=== PATIENT | female | born 1965 | race Caucasian/White ===

== ENCOUNTER 2016-12-28 23:22 | Inpatient (IN) ==
[2016-12-28] MEDS ORDERED: PROPOFOL 1,000 MG/100 ML BOTTLE IV ONE (23:30)
[2016-12-28] MEDS ORDERED: POTASSIUM CHLORIDE INJ 40 MEQ in SODIUM CHLORIDE 0.9% 250 ML IV STA (23:32)
--- NOTE | 2016-12-28 23:42 | Emergency Department Note ---
Chandni Owusu Gwan, am scribing for, and in the presence of, Alex Musa MD 23:39. Lencho Owusu Robert M, MD, personally performed the services described in this documentation, ascribed by Kian Tariq in my presence, and it is both accurate and complete . Arrival - Arrival Stated Complaint: s/p resp arrest Mode of Arrival: Stretcher Source: EMS, Old Records Reviewed, RN Notes Reviewed - History of Present Illness HPI Narrative: Patient is a 51 y/o white female who presents to the ED via [facility] s/p respiratory distress. Patient arrived to ED via stretcher intubated with mechanical ventilator with a GCS 3. Patient has a PMHx of renal failure, IDDM and HTN. [facility] confirmed that pt was at home eating when she began to have respiratory distress. It is then noted that EMS was alerted and after arrival pt went into full cardiac arrest prompting her transfer to [place] ED. Patient then was intubated and began to aspirate prompting a transfer from [place] to [place] ED via [facility]. Onset (ago): hour(s) Consistency: constant Severity: severe Allergies/Adverse Reactions: Allergies Allergy/AdvReac Type Severity Reaction Status Date / Time cefuroxime [From Ceftin] Allergy RASH Verified 09/04/16 08:49 doxercalciferol Allergy ANAPHYLAXIS Verified 09/04/16 08:49 [From Hectorol] Sulfa (Sulfonamide Allergy RASH Verified 09/04/16 08:49 Antibiotics) Home Medications: Home Medications Medication Instructions Recorded Confirmed Type Calcium Acetate [Phoslo] 2,001 mg PO TID W/MEALS 08/18/16 09/06/16 History Escitalopram [Lexapro] 10 mg PO BEDTIME 08/18/16 09/06/16 History Insulin Detemir [Levemir] 60 unit SUBCUT DAILY 08/18/16 09/06/16 History Calcium Acetate 1,334 mg PO BID 09/04/16 09/06/16 History Cinacalcet HCl [Sensipar] 60 mg PO DAILY W/LUNCH 09/04/16 09/06/16 History Metoclopramide HCl 5 mg PO ACHS 09/04/16 09/06/16 History Acetaminophen Tab [Tylenol Tab] 325 mg PO Q4H PRN #0 tablet 09/06/16 09/06/16 Rx Epoetin Beau [Epogen] 8,000 unit SUBCUT MoWeFr@0900 vial 09/06/16 09/06/16 Rx Gabapentin Cap/Tab [Neurontin 300 mg PO TID #0 09/06/16 09/06/16 Rx Cap/Tab] HYDROcodone/ACETAMIN 7.5-325 1 tablet PO Q4H PRN 09/06/16 09/06/16 History [[place] 7.5-325] Insulin Lispro [HumaLOG] See Protocol SUBCUT ACHS 09/06/16 09/06/16 History Magnesium Hydroxide Susp [Milk of 30 ml PO Q6H PRN #0 udcup 09/06/16 09/06/16 Rx Magnesia] Nicotine 21 mg/24 Hr Patch 1 patch TRANSDERM DAILY PRN #0 09/06/16 09/06/16 Rx [Nicoderm CQ 21 mg/24 hr Patch] patch Pantoprazole Tab [Protonix Tab] 40 mg PO DAILY tablet 09/06/16 09/06/16 Rx Potassium Chloride Cap/Tab [K Dur] 20 meq PO DAILY tablet 09/06/16 09/06/16 Rx Insulin Glargine [Lantus] 10 unit SUBCUT BEDTIME injection 09/20/16 Rx traZODone [Desyrel] 100 mg PO BEDTIME PRN #0 tablet 09/20/16 Rx Review of System - Review of System ROS unobtainable: other (pt is on mechanical ventilator) Exam Vital Signs: Vital Signs Temperature 96.5 F L 12/28/16 23:22 Pulse Rate 48 L 12/28/16 23:22 Respiratory Rate 12 12/28/16 23:22 Blood Pressure 152/86 12/28/16 23:22 O2 Sat by Pulse Oximetry 100 12/28/16 23:22 - General Exam limited due to: ALOC (GCS 3) - Head Head exam: Present: atraumatic - Eye Eye exam: Present: PERRL - Respiratory Respiratory exam: Present: other (equal breathe sounds ) - Abdominal Exam Abdominal exam: Present: distention (fluid wave) - Extremities Exam Extremities exam: Present: other (dialysis catheter noted to left upper extremity) Course - Consultations Consultation #1: Dr. Walker, the hospitalist, will admit the patient. Time: 00:02 Results - Labs Lab Results: I have reviewed the patients labs Labs: ABG pH 7.313 (7.35-7.45) L 12/28/16 23:40 ABG pCO2 52.7 MM HG (35-48) H 12/28/16 23:40 ABG pO2 321.0 MM HG (80-95) H 12/28/16 23:40 ABG HCO3 24.4 MMOL/L (20-26) 12/28/16 23:40 ABG Total CO2 24.7 MMOL/L (23-27) 12/28/16 23:40 ABG O2 Saturation 100.0 % (95-100) 12/28/16 23:40 ABG Base Excess -0.1 MMOL/L (-2.5-2.5) 12/28/16 23:40 FiO2 100.00 PERCENT (0-100) 12/28/16 23:40 - Diagnostic Findings Procedure: CT: image reviewed by me (No definite acute intracranial process. There may be slight loss of normal delineation of ramsey-white matter of the frontal lobes.) Critical Care Time Critical Care Time: Yes Total Critical Care Time: 42 Disposition Clinical Impression: Acute respiratory failure, Hypokalemia, End-stage renal disease on peritoneal dialysis, Peripheral neuropathy Case discussed with: patient Disposition: Still a Patient Condition: Critical Time of Disposition: 00:01
[2016-12-28] MEDS ORDERED: SODIUM CHLOR 0.9% KCL 40 MEQ 40 MEQ/1,000 ML BAG IV SCH (23:45)
[2016-12-28 23:48] LABS: Allen Test Positive; Pt O2 Delivery Device Ventilator
[2016-12-28 23:49] LABS: ABG Base Excess -0.1 MMOL/L (-2.5-2.5); ABG HCO3 24.4 MMOL/L (20-26); ABG PCO2 52.7 MM HG (35-48); ABG PH 7.313 (7.35-7.45); ABG TCO2 24.7 MMOL/L (23-27)
[2016-12-29] MEDS ORDERED: MAGNESIUM SULF RIDER 50 ML IV ONE
[2016-12-29] MEDS ORDERED: POTASSIUM CHLORIDE RIDER IV STA (00:01)
[2016-12-29] MEDS ORDERED: POTASSIUM CHLORIDE RIDER IV ONE (00:04)
[2016-12-29] MEDS ORDERED: MAGNESIUM SULF RIDER 2 GM in PREMIX 1 EACH IV STA (00:07)
[2016-12-29] MEDS ORDERED: AMIODARONE 450 MG/9 ML VIAL IV ONE (00:11)
[2016-12-29] MEDS ORDERED: AMIODARONE INJ 450 MG in DEXTROSE 5% 241 ML IV SCH (00:30)
[2016-12-29] MEDS: PROPOFOL 1,000 MG/100 ML BOTTLE IV SCH ×2 (00:48→12:01)
[2016-12-29] MEDS ORDERED: ALBUTEROL/IPRATROPIUM 3 ML NEB RESP TX PRN (00:55)
[2016-12-29] MEDS ORDERED: GLUCAGON 1 MG VIAL IM PRN (00:55)
[2016-12-29] MEDS ORDERED: DEXTROSE 50% 25 GM/50 ML VIAL IV PRN (00:55)
[2016-12-29] MEDS ORDERED: POTASSIUM CHLORIDE 20 MEQ/15 ML UDCUP PER TUBE PRN (00:55)
[2016-12-29] MEDS ORDERED: ACETAMINOPHEN 325 MG TABLET PO PRN (00:55)
[2016-12-29] MEDS ORDERED: HEPARIN DRIP 25,000 UNITS/500 ML PREMIX IV SCH (01:00)
--- NOTE | 2016-12-29 01:01 | Hospitalist History & Physical ---
Assessment and Plan (1) Cardiac arrest with ventricular fibrillation Status: Acute Assessment and plan: Defibrillated in the field and has since had runs of V. tach. Has been given pushes of lidocaine and amiodarone. Uncertain what would have caused the V. fib arrest. There is some suggestion that she may have choked while eating a steak. She has diastolic dysfunction but no systolic dysfunction on echo done earlier this year. She does have end- stage renal disease and a history of TIA so she is certainly at a high risk for thrombosis. She also has a past history of atrial fibrillation. I think it prudent to empirically anticoagulate her with a heparin infusion while the workup is ongoing. Check a d-dimer which in the unlikely chance that it is negative would help rule out thrombosis. Continue to trend troponins. The first troponin was only marginally elevated considering her ESRD and post CODE STATUS. CK-MB was negative. Evaluating for sepsis: check lactate, blood cultures, cultures from peritoneal drain. She has some electrolyte abnormalities that certainly could have precipitated an arrhythmia, perhaps there is a problem with a low K bath that she is using for dialysis or maybe she is having severe diarrhea. CT head showed no acute bleed. Chest x-ray has the appearance of pulmonary edema. ST segment depression in the lateral leads may be reciprocal changes, check right-sided EKG. Continue amiodarone 24 hour load IV infusion. Current Visit: Yes (2) Acute hypoxemic respiratory failure Status: Acute Assessment and plan: Layered records as that she has a past history of COPD, unknown if she has a baseline oxygen requirement. Efforts to wean her from 100% FiO2 required going up on her PEEP so she is showing some difficulty in oxygenating. Duo nebrachael ordered, hold home Spiriva. [place] body weight around 70 kg, tidal volume of 420 cc is eventually a good target. Will decrease from the 500 that she came in on down to 450, can increase rate as needed based on ABGs. Current Visit: Yes (3) Hypomagnesemia Status: Acute Assessment and plan: Appearance of torsades on telemetry, replacing IV Current Visit: Yes (4) COPD (chronic obstructive pulmonary disease) Status: Chronic Assessment and plan: Continue nebs, hold on Spiriva Current Visit: Yes (5) Diabetes 1.5, managed as type 1 Status: Acute Assessment and plan: Very much uncontrolled at this time. Given that she will be n.p.o. and is undergoing a workup for cardiac arrests will have a very lenient glycemic control at this time. Serial fingerstick glucose, medium lispro sliding scale insulin. Check A1c. Current Visit: Yes (6) Atrial fibrillation Status: Chronic Assessment and plan: Rhythm is currently very much irregular. I do not see that she was on any anticoagulation as an outpatient but she will now be started on a heparin infusion given the possibility that her thrombosis may have precipitated her V. fib arrest. Amiodarone given for the ventricular arrhythmia may convert her to sinus rhythm. Current Visit: Yes (7) End-stage renal disease on peritoneal dialysis Status: Acute Assessment and plan: Undergoing peritoneal dialysis, will likely need a dialysis catheter for intermittent hemo-dialysis given her critical and unstable condition. Current Visit: Yes (8) Hypokalemia Status: Acute Assessment and plan: Critically low potassium likely precipitating ventricular arrhythmias, replacing aggressively IV and p.o. Current Visit: Yes History of Present Illness Chief complaint: Cardiac arrest History of present illness: Ms. Muniz is a 51 year old female with history of end-stage renal disease on peritoneal dialysis, type I 0.5 diabetes, A. fib, COPD, MDD, diastolic heart failure (EF 60%,) TIA the presented with a chief complaint of cardiac arrest. Onset sudden. Duration a few hours ago. Relieving factors would be defibrillation in the field. Associated with ventricular arrhythmias. Patient was reportedly eating a steak tonight and somehow became apneic. When paramedics arrived she was not breathing and then intubated in the field. She was in ventricular fibrillation with ROSC after 1 200 J shock. She also received lidocaine and epinephrine. She was taken first to [place]. Initial troponin there was mildly elevated. CK-MB was negative. She was then transferred [facility] due to persistent runs of ventricular tachycardia she was bolused with amiodarone in route. When she arrived in the [place] emergency department she was given potassium for very low serum potassium and magnesium for low magnesium and the appearance of torsades during her ventricular tachycardia. CT head was read as no acute process. She was unable to participate in her own history due to the intubation and her sedation was not going at that time. I have reviewed the workup performed in the emergency department including lab and imaging data. I discussed her case with emergency department providers. Allergies Allergy/AdvReac Type Severity Reaction Status Date / Time cefuroxime [From Ceftin] Allergy RASH Verified 09/04/16 08:49 doxercalciferol Allergy ANAPHYLAXIS Verified 09/04/16 08:49 [From Hectorol] Sulfa (Sulfonamide Allergy RASH Verified 09/04/16 08:49 Antibiotics) Medical,Surgical,& Family Hx - Medical History Cardio: History of: Hypertension, [place] (2005) No history of: Cardiac Dysrhythmia, CHF, Pacemaker, Valvular Heart Disease Psychological: History of: Anxiety Disorders, Behavior Problems, Depression Neurology: History of: Cerebrovascular Accident (PATIENT STATES SHE WAS TOLD SHE HAD STROKE), Migraine, Peripheral Neuropathy No history of: Seizures Endocrine: History of: Diabetes Mellitus (IDDM), Diabetes Mellitus (NIDDM) Respiratory: History of: Bronchitis, Pneumonia (2014) Renal: History of: Dialysis (peritoneal dialysis), Renal Failure Gastrointestinal: History of: GERD, GI Problems (diarrhea/constipation) Musculoskeletal: History of: Back/Neck Problems (generalized neck pain) Other: History of: Anesthesia Reactions, Miscellaneous Medical Problems ( hypertension and CVA are listed on her triage sheet but the patient denies ) - Surgical History Cardiac Surgeries: Patient Denies: Cardiac Catheterization Abdominal Surgeries: Surgical HX of: EGD Reproductive Surgeries: Surgical HX of;: Hysterectomy Patient denies;: Genitourinary Surgery Orthopedic Surgeries: Surgical HX of;: Orthopedic Surgery (NECK SURGERY FOR RUPTURED DISK) - Family History Family History: Reports;: Family Cancer, Family Diabetes (mother), Family Heart Disease (grandfather, mother), Family Hypertension, Family Stroke Denies;: Family Anesthesia Reaction - Social History Smoking Status: Current every day smoker Frequency of Alcohol Use: Unknown Type of Drug Use: Unknown ROS unobtainable: due to endotracheal tube, due to mental status Exam - Constitutional Vitals: Period Temp Pulse Resp BP Sys/Rodriguez Pulse Ox Last 24 Hr 96.5 F-96.5 F 48-48 12-12 152-152/86-86 100 General appearance: over weight, disheveled, other (Middle-aged white female lying on stretcher and intubated, not interactive) Exam: - Eye Eye exam: Present: EOMI. Absent: conjunctival injection, scleral icterus Pupils: Present: ANJU - ENT ENT exam: Present: normal external ear exam, normal oropharynx - Expanded ENT Exam Mouth exam: Present: moist, ET tube - Neck Neck exam: Present: normal inspection. Absent: lymphadenopathy, thyromegaly - Respiratory Respiratory exam: Present: Coarse bronchial breath sounds with good air movement bilaterally. Absent: Wheezes - Cardiovascular Cardiovascular exam: Present: Irregular variable rate. Absent: diastolic murmur , systolic murmur - Expanded Cardiovascular Exam Peripheral pulses: 2+: posterior tibialis (L), posterior tibialis (R) - GI/Abdominal GI/Abdominal exam: Present: normal bowel sounds, soft, PD catheter noted. Absent: distended, hyperactive bowel sounds, hypoactive bowel sounds, organomegaly, tenderness, rebound - Extremities Exam Extremities exam: Present: Trace bilateral lower extremity pitting edema - Neurological Exam Neurological exam: Present: Pupils sluggish bilaterally, does not alert to stimulation or follow commands off sedation - Skin Skin exam: Present: warm, dry. Absent: diaphoretic, rash Results - Impressions EKG with marked irregularity, some sinus conducted beats with a lot of ventricular ectopy. Runs of V. tach noted on telemetry with torsades appearance. ST depression noted in lateral leads. - Diagnostic Findings Procedure: Chest x-ray: report reviewed by me, CT: report reviewed by me
[2016-12-29 01:07] LABS: PT Patient Result 10.9 SECS
[2016-12-29 01:10] LABS: Basophils # 0.1 10*3/uL (0.0-0.2); Basophils % 0.3 % (0.0-0.8); Eosinophils # 0.8 10*3/uL (0.0-0.87); Eosinophils % 2.9 % (0.00-10.9); Hematocrit 28.5 VOL% (35.7-47.0); Hemoglobin 10.1 GM/DL (12.0-16.0); Immature Granulocytes % 1.7 %; Immature Granulocytes Absolute 0.45 #; Lymphocytes # 3.8 10*3/uL (1.4-4.0); Lymphocytes % 14.1 % (21.3-54.2); Mean Corpuscular HGB Conc 35.4 GM/DL (32-36); Mean Corpuscular Hemoglobin 33 PG (27-34); Mean Corpuscular Volume 93.8 FL (87-102); Mean Platelet Volume 10.1 FL (9.6-12.0); Monocytes # 0.9 10*3/uL (0.11-0.8); Monocytes % 3.3 % (1.7-12.7); Neutrophils # 20.7 10*3/uL (1.4-7.4); Neutrophils % 77.7 % (38.7-73.9); Platelet Count 322 T/CUMM (130-400); Red Blood Count 3.04 MC/CUMM (3.8-5.5); Red Cell Distribution Width 14.3 % (9.3-17.3); White Blood Count 26.7 T/CUMM (4-12)
[2016-12-29 01:25] LABS: Alanine Aminotransferase 20 U/L (13-56); Albumin 2.3 G/DL (3.4-5.0); Alkaline Phosphatase 246 U/L (45-117); Aspartate Amino Transferase 40 U/L (0-37); Bilirubin,Total < 0.39 MG/DL (0.2-1.0); Blood Urea Nitrogen 25 MG/DL (7-18); Calcium 8.4 MG/DL (8.5-10.1); Glucose 301 MG/DL (74-106); Magnesium 1.8 MG/DL (1.8-2.4); Osmolality,Calculated 287.8 MOS/KG (273-304); Sodium 137 MMOL/L (136-145); Total Protein 6.1 G/DL (6.4-8.3)
[2016-12-29 01:37] LABS: Potassium 2.2 MMOL/L (3.5-5.1)
[2016-12-29 02:06] LABS: Platelet Estimate Normal
[2016-12-29 03:32] LABS: ABG Base Excess -0.3 MMOL/L (-2.5-2.5); ABG HCO3 25.3 MMOL/L (20-26); ABG Oxygen Saturation 97.7 % (95-100); ABG PCO2 45.7 MM HG (35-48); ABG PH 7.361 (7.35-7.45); ABG PO2 118.3 MM HG (80-95); ABG TCO2 26.7 MMOL/L (23-27); Allen Test Positive; Pt O2 Delivery Device Ventilator
--- NOTE | 2016-12-29 03:46 | EKG Report ---
Stationary ECG Study [facility] Test Date: 12/29/2016 3:45:02 AM Pat Name: ROSEMARY PADILLA Department: Room: 128 Gender: F Access Rep: MARVIN : 1965 Requested by: Vicenta Knight Order Number: [id number] Reading MD: ANGELO NAIR Intervals [place] Rate: 73 P: 999 RI: 0 QRS: -29 QRSD: 99 T: 59 QT: 423 QTc: 450 Interpretive Statements SINUS RHYTHM WITH FREQUENT PREMATURE VENTRICULAR COMPLEXES THAT APPEAR TO BE MULTI FOCAL. Electronically Signed On 12-30-16 11:35:47 CDT by ANGELO NAIR [email or web address]
[2016-12-29] MEDS ORDERED: MAGNESIUM SULF RIDER 4 GM in PREMIX 1 EACH IV PRN (03:51)
[2016-12-29] MEDS ORDERED: MAGNESIUM SULF RIDER 2 GM in PREMIX 1 EACH IV PRN (03:51)
[2016-12-29] MEDS: fentaNYL INJ 1,250 MCG in SODIUM CHLORIDE 0.9% 225 ML IV SCH (04:18)
[2016-12-29] MEDS: INSULIN LISPRO 100 UNIT/ML SUBCUT SCH ×3 (07:15→18:12)
--- NOTE | 2016-12-29 07:21 | Hospitalist Progress Note ---
Assessment and Plan - Time spent with patient Time spent with patient: Greater than 30 minutes (1) Cardiac arrest with ventricular fibrillation Status: Acute Assessment and plan: Patient had out of hospital cardiac arrest with reported ventricular fibrillation status post field defibrillation 1 with subsequent runs of ventricular tachycardia. Patient has been heparinized and placed on IV amiodarone. She is intubated sedated and requiring ventilatory support. She is receiving electrolyte replacement. Cardiology has been consulted. Will discuss with him and consider initiation of hypothermia protocol. Current Visit: Yes (2) Acute respiratory failure Status: Acute Assessment and plan: Patient is status post cardiac arrest and is now intubated and sedated on a ventilator. Have consulted pulmonary to assist. Current Visit: Yes (3) Diabetes 1.5, managed as type 1 Status: Acute Assessment and plan: Patient will be placed on Lantus along with Accu-Cheks and sliding scale insulin. Will follow and make adjustments as needed. Current Visit: Yes (4) Hypokalemia Status: Acute Assessment and plan: Receiving potassium replacement per protocol. Current Visit: Yes (5) Hypomagnesemia Status: Acute Assessment and plan: Receiving magnesium replacement per protocol. Current Visit: Yes (6) End-stage renal disease on peritoneal dialysis Status: Acute Assessment and plan: Patient is on peritoneal dialysis. Have consulted nephrology to assist. Current Visit: Yes (7) COPD (chronic obstructive pulmonary disease) Status: Chronic Assessment and plan: Reported history of COPD. Continue ventilatory support nebulizer therapy. Consulted pulmonary to assist. Current Visit: Yes (8) Atrial fibrillation Status: Chronic Assessment and plan: Patient has history of atrial fibrillation. Currently she is on heparin infusion as well as amiodarone. No noted outpatient anticoagulation. Cardiology has been consulted. Current Visit: Yes Hospitalist: Subjective Interval history: Chart reviewed, patient examined. Patient remains intubated, sedated. Exam - Constitutional Vitals: Period Temp Pulse Resp BP Sys/Rodriguez Pulse Ox Last 24 Hr 97.6 F-97.9 F 65-106 14-28 138-178/66-91 89-100 General appearance: no acute distress - Head Head exam: Present: normocephalic, atraumatic - Eye Eye exam: Absent: scleral icterus Pupils: Present: dilated - ENT ENT exam: Present: other (ET tube in place) - Neck Neck exam: Present: normal inspection - Respiratory Respiratory exam: Present: clear to auscultation bilaterally. Absent: rales, rhonchi, wheezes - Cardiovascular Cardiovascular exam: Present: regular rate and rhythm. Absent: systolic murmur - GI/Abdominal GI/Abdominal exam: Present: normal bowel sounds, soft. Absent: mass, tenderness - Extremities Exam Extremities exam: Absent: calf tenderness, edema - Neurological Exam Neurological exam: Present: other (Intubated, sedated, postures to noxious stimuli) - Skin Skin exam: Present: warm. Absent: petechiae, rash Results - Labs CBC & BMP: 12/29/16 00:00 12/29/16 00:00 Lab Results: I have reviewed the past 24 hour labs - EKG EKG shows: sinus rhythm - Diagnostic Findings Procedure: Chest x-ray: report reviewed by me, CT: report reviewed by me
--- NOTE | 2016-12-29 08:03 | XRay Report ---
XR chest 1V portable Indication: Chest pain. Shortness of breath. Comparison: Chest x-ray 12/28/2016; 2325 hours Technique: Portable AP chest was performed. Findings: Endotracheal tube is stable in position. There is been interval partial clearing of the lung parenchyma and perihilar regions bilaterally. Chest is otherwise stable. Impression: 1. Improved appearance of the lung parenchyma suggests improving pulmonary edema. 12/29/2016 8:00 AM PROCEDURE INTERPRETED AT [facility] DEPARTMENT OF RADIOLOGY Final Report Signed by: Dr. Marc Musa
--- NOTE | 2016-12-29 08:04 | CT Report ---
CT head/brain wo con Indication: Respiratory arrest status post resuscitation. Comparison: CT head 08/18/2016. Technique: CT of the brain was performed without administration of intravenous contrast. The CT examination was performed using one or more of the following dose reduction techniques: Automatic exposure control, adjustment of the mA and kV according to patient size, use of acute or iterative reconstruction techniques. Findings: Guerrero-white matter junction remains fairly distinct. There is no evidence of cerebral edema. No acute hemorrhage is demonstrated. No midline shift is present. The ventricles appear within normal limits. The basal cisterns are patent. No significant abnormality is demonstrated to involve the posterior fossa or cerebellum. Orbits and globes demonstrate no evidence of significant pathology. The paranasal sinuses are clear. No significant abnormality is demonstrated to involve the mastoid air cells. The calvarium and overlying soft tissues demonstrate no evidence of acute pathology. Impression: 1. No CT evidence of acute intracranial pathology. 12/29/2016 8:01 AM PROCEDURE INTERPRETED AT [facility] DEPARTMENT OF RADIOLOGY Final Report Signed by: Dr. Marc Musa
[2016-12-29] MEDS ORDERED: LIDOCAINE 1% 20 ML VIAL MISC INJ ONE (08:24)
--- NOTE | 2016-12-29 08:27 | EKG Report ---
Please refer to the EKG image. Final interpretation is pending.
--- NOTE | 2016-12-29 08:30 | EKG Report ---
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
--- NOTE | 2016-12-29 08:34 | Cardiology Consult Note ---
Assessment and Plan (1) Acute respiratory failure Status: Acute Current Visit: Yes (2) Cardiac arrest with ventricular fibrillation Status: Acute Assessment and plan: Patient was noted to have a potassium of 2.2 and is getting replaced. As far as etiology of her V. fib this certainly could have contributed. We will repeat an echo to evaluate LV function currently. Current Visit: Yes (3) Hypomagnesemia Status: Acute Current Visit: Yes (4) Atrial fibrillation Status: Chronic Current Visit: Yes (5) ESRD (end stage renal disease) Status: Chronic Current Visit: No (6) Hypokalemia Status: Chronic Current Visit: No History of Present Illness - Data of Consult Patient: new to practice - Consult Narrative Reason for consult: Cardiopulmonary arrest History of present illness: Ms. Muniz is a 51 year old female who is an end-stage renal dialysis patient who was seen after collapsing while eating. She was defibrillated in the field and presented to [place] emergency room and was transferred to [facility] for continued care. She has a past history of atrial fibrillation she has a history of TIA she has a history of heart failure with preserved ejection fraction. Apparently she was intubated at [facility] and there was some question as to whether she aspirated during that intubation. She has been sedated on the ventilator since admission here with questionable seizure activity. She is for evaluation related to any change in her underlying cardiac status which would explain her recent rhythm issues. CC: Santo Lux - Home Medications and Allergies Home Medications: Home Medications Medication Instructions Recorded Confirmed Type Calcium Acetate [Phoslo] 2,001 mg PO TID W/MEALS 08/18/16 09/06/16 History Escitalopram [Lexapro] 10 mg PO BEDTIME 08/18/16 09/06/16 History Insulin Detemir [Levemir] 60 unit SUBCUT DAILY 08/18/16 09/06/16 History Calcium Acetate 1,334 mg PO BID 09/04/16 09/06/16 History Cinacalcet HCl [Sensipar] 60 mg PO DAILY W/LUNCH 09/04/16 09/06/16 History Metoclopramide HCl 5 mg PO ACHS 09/04/16 09/06/16 History Acetaminophen Tab [Tylenol Tab] 325 mg PO Q4H PRN #0 tablet 09/06/16 09/06/16 Rx Epoetin Beau [Epogen] 8,000 unit SUBCUT MoWeFr@0900 vial 09/06/16 09/06/16 Rx Gabapentin Cap/Tab [Neurontin 300 mg PO TID #0 09/06/16 09/06/16 Rx Cap/Tab] HYDROcodone/ACETAMIN 7.5-325 1 tablet PO Q4H PRN 09/06/16 09/06/16 History [[place] 7.5-325] Insulin Lispro [HumaLOG] See Protocol SUBCUT ACHS 09/06/16 09/06/16 History Magnesium Hydroxide Susp [Milk of 30 ml PO Q6H PRN #0 udcup 09/06/16 09/06/16 Rx Magnesia] Nicotine 21 mg/24 Hr Patch 1 patch TRANSDERM DAILY PRN #0 09/06/16 09/06/16 Rx [Nicoderm CQ 21 mg/24 hr Patch] patch Pantoprazole Tab [Protonix Tab] 40 mg PO DAILY tablet 09/06/16 09/06/16 Rx Potassium Chloride Cap/Tab [K Dur] 20 meq PO DAILY tablet 09/06/16 09/06/16 Rx Insulin Glargine [Lantus] 10 unit SUBCUT BEDTIME injection 09/20/16 Rx traZODone [Desyrel] 100 mg PO BEDTIME PRN #0 tablet 09/20/16 Rx Allergies/Adverse Reactions: Allergies Allergy/AdvReac Type Severity Reaction Status Date / Time cefuroxime [From Ceftin] Allergy RASH Verified 09/04/16 08:49 doxercalciferol Allergy ANAPHYLAXIS Verified 09/04/16 08:49 [From Hectorol] Sulfa (Sulfonamide Allergy RASH Verified 09/04/16 08:49 Antibiotics) ROS unobtainable: due to endotracheal tube, due to mental status Medical,Surgical,& Family Hx - Medical History Cardio: History of: Hypertension, [place] (2005) No history of: Cardiac Dysrhythmia, CHF, Pacemaker, Valvular Heart Disease Psychological: History of: Anxiety Disorders, Behavior Problems, Depression Neurology: History of: Cerebrovascular Accident (PATIENT STATES SHE WAS TOLD SHE HAD STROKE), Migraine, Peripheral Neuropathy No history of: Seizures Endocrine: History of: Diabetes Mellitus (IDDM), Diabetes Mellitus (NIDDM) Respiratory: History of: Bronchitis, Pneumonia (2014) Renal: History of: Dialysis (peritoneal dialysis), Renal Failure Gastrointestinal: History of: GERD, GI Problems (diarrhea/constipation) Musculoskeletal: History of: Back/Neck Problems (generalized neck pain) Other: History of: Anesthesia Reactions, Miscellaneous Medical Problems ( hypertension and CVA are listed on her triage sheet but the patient denies ) - Surgical History Cardiac Surgeries: Patient Denies: Cardiac Catheterization Abdominal Surgeries: Surgical HX of: EGD Reproductive Surgeries: Surgical HX of;: Hysterectomy Patient denies;: Genitourinary Surgery Orthopedic Surgeries: Surgical HX of;: Orthopedic Surgery (NECK SURGERY FOR RUPTURED DISK) - Family History Family History: Reports;: Family Cancer, Family Diabetes (mother), Family Heart Disease (grandfather, mother), Family Hypertension, Family Stroke Denies;: Family Anesthesia Reaction - Social History Smoking Status: Current every day smoker Frequency of Alcohol Use: Unknown Type of Drug Use: Unknown Physical Examination Vital Signs Temp Pulse Resp BP Pulse Ox 96.5 F L 48 L 12 152/86 100 12/28/16 23:22 12/28/16 23:22 12/28/16 23:22 12/28/16 23:22 12/28/16 23:22 Other: General: Patient is unresponsive on the ventilator. Does not respond to deep pain. HEENT: no new lesions, sclerae are clear, mouth and pharynx benign Neck: supple, trachea midline, no JVD noted Lungs: Coarse rhonchi to both lung villareal. No wheeze or rales are noted. Equal breath sounds are noted. CV: RRR no murmur rub or gallop is noted. Abd: soft and nontender, BSNA, no masses. Ext: no cyanosis, clubbing or edema Neuro: Patient is sedated on the ventilator. She is having questionable seizure activity. Result/EKG - Labs CBC & BMP: 12/29/16 00:00 12/29/16 00:00 Labs: Laboratory Results - last 24 hr 12/29/16 12/29/16 12/29/16 01:50 01:50 03:20 Circ Anticoag PTT ABG pH 7.361 ABG pCO2 45.7 ABG pO2 118.3 H ABG HCO3 25.3 ABG Total CO2 26.7 ABG O2 Saturation 97.7 ABG Base Excess -0.3 FiO2 80.00 POC Glucose Lactic Acid Fluid Tot Cell Count 3 Fluid Neutrophils 33 Fluid Lymphocytes 67 Fluid Glucose 439 Dialysate WBC 19 Dialysate RBC < 1 12/29/16 12/29/16 12/29/16 06:51 06:51 07:06 Circ Anticoag PTT 39.9 D ABG pH ABG pCO2 ABG pO2 ABG HCO3 ABG Total CO2 ABG O2 Saturation ABG Base Excess FiO2 POC Glucose 442 H Lactic Acid 9.2 H Fluid Tot Cell Count Fluid Neutrophils Fluid Lymphocytes Fluid Glucose Dialysate WBC Dialysate RBC - EKG EKG results: interpreted by me (Atrial fibrillation nonspecific ST-T abnormalities)
--- NOTE | 2016-12-29 08:35 | Pulmonology Consult Note ---
History of Present Illness Chief complaint: Status post cardiac arrest History of present illness: Ms. Muniz is a 51 year old female who apparently was eating a steak and suddenly became unconscious. It is unclear whether she choked on the food or had a cardiac event. She had ventricular fibrillation was defibrillated intubated and brought here. The present time she is unresponsive unable to give us any other history. She is an end-stage renal disease patient with chronic peritoneal dialysis. Unable to get an assessment plan section so will list impressions here: 1. Status post cardiac arrest with ventricular fibrillation. I suspect that she choked on food and aspirated. Certainly could have been a cardiac event. Troponins are not markedly elevated at this point. 2. Acute hypoxemic respiratory failure. Will continue mechanical ventilation and adjust ventilator as indicated. She is on 80% at present I think we can cut her back to 60%. Questionable history of COPD. 3. End-stage renal disease with peritoneal dialysis. No signs of infection related. Continue with dialysis as required. 4. Diabetes mellitus. Increased risks of sepsis. 5. Suspect aspiration with aspiration pneumonia. We will plan bronchoscopy and clean her out. Will add Cleocin and Levaquin. Home Medications Medication Instructions Recorded Confirmed Type Calcium Acetate [Phoslo] 2,001 mg PO TID W/MEALS 08/18/16 09/06/16 History Escitalopram [Lexapro] 10 mg PO BEDTIME 08/18/16 09/06/16 History Insulin Detemir [Levemir] 60 unit SUBCUT DAILY 08/18/16 09/06/16 History Calcium Acetate 1,334 mg PO BID 09/04/16 09/06/16 History Cinacalcet HCl [Sensipar] 60 mg PO DAILY W/LUNCH 09/04/16 09/06/16 History Metoclopramide HCl 5 mg PO ACHS 09/04/16 09/06/16 History Acetaminophen Tab [Tylenol Tab] 325 mg PO Q4H PRN #0 tablet 09/06/16 09/06/16 Rx Epoetin Beau [Epogen] 8,000 unit SUBCUT MoWeFr@0900 vial 09/06/16 09/06/16 Rx Gabapentin Cap/Tab [Neurontin 300 mg PO TID #0 09/06/16 09/06/16 Rx Cap/Tab] HYDROcodone/ACETAMIN 7.5-325 1 tablet PO Q4H PRN 09/06/16 09/06/16 History [[place] 7.5-325] Insulin Lispro [HumaLOG] See Protocol SUBCUT ACHS 09/06/16 09/06/16 History Magnesium Hydroxide Susp [Milk of 30 ml PO Q6H PRN #0 udcup 09/06/16 09/06/16 Rx Magnesia] Nicotine 21 mg/24 Hr Patch 1 patch TRANSDERM DAILY PRN #0 09/06/16 09/06/16 Rx [Nicoderm CQ 21 mg/24 hr Patch] patch Pantoprazole Tab [Protonix Tab] 40 mg PO DAILY tablet 09/06/16 09/06/16 Rx Potassium Chloride Cap/Tab [K Dur] 20 meq PO DAILY tablet 09/06/16 09/06/16 Rx Insulin Glargine [Lantus] 10 unit SUBCUT BEDTIME injection 09/20/16 Rx traZODone [Desyrel] 100 mg PO BEDTIME PRN #0 tablet 09/20/16 Rx Allergies Allergy/AdvReac Type Severity Reaction Status Date / Time cefuroxime [From Ceftin] Allergy RASH Verified 09/04/16 08:49 doxercalciferol Allergy ANAPHYLAXIS Verified 09/04/16 08:49 [From Hectorol] Sulfa (Sulfonamide Allergy RASH Verified 09/04/16 08:49 Antibiotics) ROS unobtainable: due to endotracheal tube, due to mental status Exam (Pulmonay) H&P - Constitutional Vitals: Period Temp Pulse Resp BP Sys/Rodriguez Pulse Ox Last 24 Hr 97.6 F-97.9 F 65-106 1-28 138-178/66-91 89-100 Exam: Patient is unresponsive. Pupils are midpoint and sluggish. Orotracheal tube in place. Neck supple. Chest reveals some rhonchi bilaterally. Heart normal rate rhythm no murmurs. Abdomen soft no masses. Extremities no clubbing cyanosis trace of edema. Patient has peritoneal catheter in place Medical,Surgical,& Family Hx - Medical History Cardio: History of: Hypertension, [place] (2005) No history of: Cardiac Dysrhythmia, CHF, Pacemaker, Valvular Heart Disease Psychological: History of: Anxiety Disorders, Behavior Problems, Depression Neurology: History of: Cerebrovascular Accident (PATIENT STATES SHE WAS TOLD SHE HAD STROKE), Migraine, Peripheral Neuropathy No history of: Seizures Endocrine: History of: Diabetes Mellitus (IDDM), Diabetes Mellitus (NIDDM) Respiratory: History of: Bronchitis, Pneumonia (2015) Renal: History of: Dialysis (peritoneal dialysis), Renal Failure Gastrointestinal: History of: GERD, GI Problems (diarrhea/constipation) Musculoskeletal: History of: Back/Neck Problems (generalized neck pain) Other: History of: Anesthesia Reactions, Miscellaneous Medical Problems ( hypertension and CVA are listed on her triage sheet but the patient denies ) - Surgical History Cardiac Surgeries: Patient Denies: Cardiac Catheterization Abdominal Surgeries: Surgical HX of: EGD Reproductive Surgeries: Surgical HX of;: Hysterectomy Patient denies;: Genitourinary Surgery Orthopedic Surgeries: Surgical HX of;: Orthopedic Surgery (NECK SURGERY FOR RUPTURED DISK) - Family History Family History: Reports;: Family Cancer, Family Diabetes (mother), Family Heart Disease (grandfather, mother), Family Hypertension, Family Stroke Denies;: Family Anesthesia Reaction - Social History Smoking Status: Current every day smoker Frequency of Alcohol Use: Unknown Type of Drug Use: Unknown Results - Labs CBC & BMP: 12/29/16 00:00 12/29/16 00:00 Lab Results: I have reviewed the past 24 hour labs - Diagnostic Findings Procedure: Chest x-ray: image reviewed by me (ET tube in good position. Right lower lobe infiltrate consistent with pneumonia, suspicious for aspiration.)
[2016-12-29 08:53] LABS: PT Patient Result 11.1 SECS
[2016-12-29 09:02] LABS: Magnesium 2.6 MG/DL (1.8-2.4); Partial Thromboplastin Time 42.2 SECS (0-40)
--- NOTE | 2016-12-29 09:02 | Ultrasound Report ---
US venous doppler LE BI Indication: Atrial fibrillation. Cardiac arrest. Leg swelling. Comparison: None. Technique: Using a transcutaneous probe, grayscale, spectral Doppler, and color Doppler images of the bilateral lower extremity venous structures were captured and stored. Grayscale images prior to and following compression were obtained. Interrogated venous structures include the bilateral common femoral vein, superficial femoral vein (proximal, mid, and distal), and popliteal vein. Findings: There is no evidence of thrombus within the interrogated venous structures. the interrogated venous segments demonstrate presence of both color flow and spectral flow. The left popliteal fossa contains a hypoechoic structure measuring 4.0 x 2.2 x 4.2 cm compatible with Chase's cyst. Impression: 1. No evidence of venous thrombosis. 2. 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 12/29/2016 8:59 AM PROCEDURE INTERPRETED AT [facility] DEPARTMENT OF RADIOLOGY Final Report Signed by: Dr. Marc Musa
--- NOTE | 2016-12-29 09:10 | Operative Note ---
Date of procedure: 12/29/16 (Fiberoptic bronchoscopy with removal of retained secretion) Pre-op diagnosis: Aspiration pneumonia right lung Post-op diagnosis: same Procedure: After an appropriate timeout to be sure we were dealing with Betty Muniz, the ventilator was turned to 100% oxygen. The fiberoptic bronchoscope was introduced via the side arm of the endotracheal tube. I first used a pediatric scope because her endotracheal tube was a 7.0 size. We visualize the airways and found a good bit of secretions in the right lung. They were fairly thick. I was unable to suction him out with the pediatric scope so I used a medium- sized adult scope. We then were able to irrigate and remove retained secretions and plugs from the right middle lower and upper lobes. There were no endobronchial lesions. The tip of the endotracheal tube was 4 cm above the [place]. Bronchial washings were sent for cultures. The bronchoscope was removed. Patient remained on the ventilator in stable but critical condition. Anesthesia: conscious sedation Surgeon / Physician: Jordan Mora Estimated blood loss: none Specimens: other (Bronchial washings for cultures) Condition: critical Disposition: ICU (Actually CCU) Results - Labs CBC & BMP: 12/29/16 00:00 12/29/16 08:15 Discharge Plan - Discharge Medications No Action Calcium Acetate [Phoslo] 2,001 mg PO TID W/MEALS Insulin Detemir [Levemir] 60 unit SUBCUT DAILY Escitalopram [Lexapro] 10 mg PO BEDTIME Calcium Acetate 1,334 mg PO BID Epoetin Beau [Epogen] 8,000 unit SUBCUT MoWeFr@0900 vial Gabapentin Cap/Tab [Neurontin Cap/Tab] 300 mg PO TID #0 Cinacalcet HCl [Sensipar] 60 mg PO DAILY W/LUNCH Metoclopramide HCl 5 mg PO ACHS Acetaminophen Tab [Tylenol Tab] 325 mg PO Q4H PRN #0 tablet PRN Reason: fever, headache/body aches Magnesium Hydroxide Susp [Milk of Magnesia] 30 ml PO Q6H PRN #0 udcup PRN Reason: Constipation Nicotine 21 mg/24 Hr Patch [Nicoderm CQ 21 mg/24 hr Patch] 1 patch TRANSDERM DAILY PRN #0 patch PRN Reason: Nicotine Withdrawal Pantoprazole Tab [Protonix Tab] 40 mg PO DAILY tablet Potassium Chloride Cap/Tab [K Dur] 20 meq PO DAILY tablet Insulin Lispro [HumaLOG] See Protocol SUBCUT ACHS Insulin Glargine [Lantus] 10 unit SUBCUT BEDTIME injection HYDROcodone/ACETAMIN 7.5-325 [[place] 7.5-325] 1 tablet PO Q4H PRN PRN Reason: Pain Moderate To Severe (4-10) traZODone [Desyrel] 100 mg PO BEDTIME PRN #0 tablet PRN Reason: Insomnia - Follow Up or Referral - Forms/Instructions
[2016-12-29 09:28] LABS: Free T4 (Free Thyroxine) 1.15 NG/DL (0.76-1.46); Thyroid Stimulating Hormone 1.78 uIU/ml (0.358-3.74)
[2016-12-29] MEDS: INSULIN GLARGINE 100 UNIT/ML SUBCUT SCH (10:00)
[2016-12-29] MEDS: CLINDAMYCIN INJ 600 MG in PREMIX 1 EACH IV SCH ×2 (10:00→16:40)
[2016-12-29] MEDS: POTASSIUM CHLORIDE RIDER 10 MEQ in PREMIX 1 EACH IV PRN ×6 (10:00→18:30)
[2016-12-29] MEDS: methylPREDNISolone SOD SUC 40 MG/1 ML VIAL IV SCH ×2 (10:05→20:22)
[2016-12-29] MEDS: LEVOFLOXACIN INJ 250 MG in PREMIX 1 EACH IV SCH (10:15)
[2016-12-29] MEDS: AMIODARONE INJ 450 MG in DEXTROSE 5% 241 ML IV SCH ×2 (11:00→23:51)
[2016-12-29 11:17] LABS: ABG Base Excess -2.2 MMOL/L (-2.5-2.5); ABG HCO3 22.6 MMOL/L (20-26); ABG Oxygen Saturation 97.1 % (95-100); ABG PCO2 43.2 MM HG (35-48); ABG PH 7.343 (7.35-7.45); ABG TCO2 21.6 MMOL/L (23-27); Pt O2 Delivery Device Ventilator
--- NOTE | 2016-12-29 11:52 | Nephrology Consult Note ---
History of Present Illness Chief complaint: ESRD, cardiac arrest History of present illness: Ms. Muniz is a 51 year old female who suffered sudden cardiac arrest last p.m. She has ESRD and is on peritoneal dialysis. She was initially taken to [facility]. Potassium was noted to be 2.0. This has been supplemented. She required CPR, intubation and cardioversion. She had ventricular dysrhythmias including V. tach and V. fib. Blood pressure is currently stable without pressors. Home Medications Medication Instructions Recorded Confirmed Type Calcium Acetate [Phoslo] 2,001 mg PO TID W/MEALS 08/18/16 09/06/16 History Escitalopram [Lexapro] 10 mg PO BEDTIME 08/18/16 09/06/16 History Insulin Detemir [Levemir] 60 unit SUBCUT DAILY 08/18/16 09/06/16 History Calcium Acetate 1,334 mg PO BID 09/04/16 09/06/16 History Cinacalcet HCl [Sensipar] 60 mg PO DAILY W/LUNCH 09/04/16 09/06/16 History Metoclopramide HCl 5 mg PO ACHS 09/04/16 09/06/16 History Acetaminophen Tab [Tylenol Tab] 325 mg PO Q4H PRN #0 tablet 09/06/16 09/06/16 Rx Epoetin Beau [Epogen] 8,000 unit SUBCUT MoWeFr@0900 vial 09/06/16 09/06/16 Rx Gabapentin Cap/Tab [Neurontin 300 mg PO TID #0 09/06/16 09/06/16 Rx Cap/Tab] HYDROcodone/ACETAMIN 7.5-325 1 tablet PO Q4H PRN 09/06/16 09/06/16 History [[place] 7.5-325] Insulin Lispro [HumaLOG] See Protocol SUBCUT ACHS 09/06/16 09/06/16 History Magnesium Hydroxide Susp [Milk of 30 ml PO Q6H PRN #0 udcup 09/06/16 09/06/16 Rx Magnesia] Nicotine 21 mg/24 Hr Patch 1 patch TRANSDERM DAILY PRN #0 09/06/16 09/06/16 Rx [Nicoderm CQ 21 mg/24 hr Patch] patch Pantoprazole Tab [Protonix Tab] 40 mg PO DAILY tablet 09/06/16 09/06/16 Rx Potassium Chloride Cap/Tab [K Dur] 20 meq PO DAILY tablet 09/06/16 09/06/16 Rx Insulin Glargine [Lantus] 10 unit SUBCUT BEDTIME injection 09/20/16 Rx traZODone [Desyrel] 100 mg PO BEDTIME PRN #0 tablet 09/20/16 Rx Allergies Allergy/AdvReac Type Severity Reaction Status Date / Time cefuroxime [From Ceftin] Allergy RASH Verified 09/04/16 08:49 doxercalciferol Allergy ANAPHYLAXIS Verified 09/04/16 08:49 [From Hectorol] Sulfa (Sulfonamide Allergy RASH Verified 09/04/16 08:49 Antibiotics) Medical,Surgical,& Family Hx - Medical History Cardio: History of: Hypertension, [place] (2005) No history of: Cardiac Dysrhythmia, CHF, Pacemaker, Valvular Heart Disease Psychological: History of: Anxiety Disorders, Behavior Problems, Depression Neurology: History of: Cerebrovascular Accident (PATIENT STATES SHE WAS TOLD SHE HAD STROKE), Migraine, Peripheral Neuropathy No history of: Seizures Endocrine: History of: Diabetes Mellitus (IDDM), Diabetes Mellitus (NIDDM) Respiratory: History of: Bronchitis, Pneumonia (2014) Renal: History of: Dialysis (peritoneal dialysis), Renal Failure Gastrointestinal: History of: GERD, GI Problems (diarrhea/constipation) Musculoskeletal: History of: Back/Neck Problems (generalized neck pain) Other: History of: Anesthesia Reactions, Miscellaneous Medical Problems ( hypertension and CVA are listed on her triage sheet but the patient denies ) - Surgical History Cardiac Surgeries: Patient Denies: Cardiac Catheterization Abdominal Surgeries: Surgical HX of: EGD Reproductive Surgeries: Surgical HX of;: Hysterectomy Patient denies;: Genitourinary Surgery Orthopedic Surgeries: Surgical HX of;: Orthopedic Surgery (NECK SURGERY FOR RUPTURED DISK) - Family History Family History: Reports;: Family Cancer, Family Diabetes (mother), Family Heart Disease (grandfather, mother), Family Hypertension, Family Stroke Denies;: Family Anesthesia Reaction - Social History Smoking Status: Current every day smoker Frequency of Alcohol Use: Unknown Type of Drug Use: Unknown Review of Systems ROS unobtainable: due to endotracheal tube Exam - Vital Signs Vital signs: Period Temp Pulse Resp BP Sys/Rodriguez Pulse Ox Last 24 Hr 97.6 F-97.9 F 65-106 1-28 138-178/66-91 89-100 Exam: Gen.: Sedated on ventilator ENT: Pupils equal round reactive to light. Neck: Supple. No JVD or bruit. Cardiovascular: Regular rate and rhythm. No murmur rub or gallop Lungs: Clear Abdomen: Soft. Nontender. Positive bowel sounds. No organomegaly Extremities: No edema Results - Labs CBC & BMP: 12/29/16 00:00 12/29/16 08:15 Assessment and Plan (1) End-stage renal disease on peritoneal dialysis Status: Acute Assessment and plan: 51-year-old woman admitted with: * Cardiac arrest. Ventricular dysrhythmias. She was markedly hypokalemic on presentation. This has been supplemented. * Hypokalemia. Improved * Ventilatory failure * ESRD. She is on peritoneal dialysis. Blood pressure is stable. She is not acidotic. PD will be suspended today while potassium is repleted * Diabetes mellitus * COPD Current Visit: Yes (2) Acute respiratory failure Status: Acute Current Visit: Yes (3) Cardiac arrest with ventricular fibrillation Status: Acute Current Visit: Yes (4) Diabetes 1.5, managed as type 1 Status: Acute Current Visit: Yes (5) Hypokalemia Status: Acute Current Visit: Yes (6) Hypomagnesemia Status: Acute Current Visit: Yes (7) COPD (chronic obstructive pulmonary disease) Status: Chronic Current Visit: Yes
--- NOTE | 2016-12-29 14:10 | EKG Report ---
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
--- NOTE | 2016-12-29 14:38 | ECHO Report ---
Betty Muniz Exam Date: 12/29/2016 10:39 Referring Physician: Technologist: Perla Yu RDCS Age: 51 Ht (in): 65 Wt (lb): 189 Gender: F Exam Location: [facility] Echo Indications: Acute respiratory failure, unspecified whether with hypoxia or hypercapnia, Cardiac arrest with VFib, Hypomagnesemia, Atrial fibrillation, End stage renal disease, Hypokalemia, Essential (primary) hypertension, IDDM BP: 142 / 98 HR: 91 Rhythm: Atrial fibrillation Technical Quality: Technically difficult study IMPRESSIONS Technically difficult study. EF40- 45 %. Global hypokinesis. The right ventricle is normal in size and function. The right atrium is mildly enlarged. Moderately increased left atrial size. Mildly thickened mitral valve. Mild mitral valve regurgitation. Trileaflet aortic valve. No aortic valve regurgitation. Severe tricuspid valve regurgitation. TAT19-93 mmHG. Trace pulmonary valve regurgitation. Normal pericardium without effusion. Normal ascending aorta dimension. MEASUREMENTS (Male / Female) Normal Values 2D ECHO LV Diastolic Diameter PLAX 4.3 cm 4.2 - 5.9 / 3.9 - 5.3 cm LV Systolic Diameter PLAX 2.9 cm LV Fractional Shortening PLAX 33.4 % IVS Diastolic Thickness 1.1 cm 0.6 - 1.0 / 0.6 - 0.9 cm LVPW Diastolic Thickness 1.1 cm 0.6 - 1.0 / 0.6 - 0.9 cm RV Internal Dim ED PLAX 3.0 cm Aortic Root Diameter 3.1 cm LA Systolic Diameter LX 4.1 cm 3.0 - 4.0 / 2.7 - 3.8 cm DOPPLER TR Peak Velocity 386.0 cm/s TR Peak Gradient 59.6 mmHg FINDINGS Left Ventricle EF40- 45 %. Global hypokinesis. Right Ventricle The right ventricle is normal in size and function. Right Atrium The right atrium is mildly enlarged. Left Atrium Moderately increased left atrial size. Mitral Valve Mildly thickened mitral valve. Mild mitral valve regurgitation. . Aortic Valve Trileaflet aortic valve. No aortic valve regurgitation. Tricuspid Valve Morphologically normal tricuspid valve. Severe tricuspid valve regurgitation. WGA92-27 mmHG. Pulmonic Valve Morphologically normal pulmonic valve. Trace pulmonary valve regurgitation. Pericardium Normal pericardium without effusion. Aorta Normal ascending aorta dimension. Lenin Robbie (Electronically Signed) Final Date: 29 Dec 2016 14:36
[2016-12-29] MEDS: ENOXAPARIN 30 MG/0.3 ML SYRINGE SUBCUT SCH (16:44)
[2016-12-29] MEDS: hydrALAZINE 20 MG/1 ML VIAL IV PRN (17:30)
[2016-12-29] MEDS: NITROGLYCERIN 2% OINT 1 INCH/GM PACK TOP SCH (18:26)
[2016-12-30] MEDS: INSULIN LISPRO 100 UNIT/ML SUBCUT SCH ×4 (00:40→17:45)
[2016-12-30] MEDS: CLINDAMYCIN INJ 600 MG in PREMIX 1 EACH IV SCH ×3 (00:45→16:35)
[2016-12-30] MEDS: NITROGLYCERIN 2% OINT 1 INCH/GM PACK TOP SCH ×4 (00:50→18:54)
[2016-12-30] MEDS: PROPOFOL 1,000 MG/100 ML BOTTLE IV SCH (04:56)
[2016-12-30 05:32] LABS: Basophils % 0.1 % (0.0-0.8); Hematocrit 24.3 VOL% (35.7-47.0); Hemoglobin 8.5 GM/DL (12.0-16.0); Immature Granulocytes Absolute 0.25 #; Lymphocytes # 1.7 10*3/uL (1.4-4.0); Lymphocytes % 6.4 % (21.3-54.2); Mean Corpuscular Hemoglobin 32 PG (27-34); Mean Corpuscular Volume 92.7 FL (87-102); Mean Platelet Volume 10.3 FL (9.6-12.0); Monocytes # 0.5 10*3/uL (0.11-0.8); Monocytes % 2.1 % (1.7-12.7); Neutrophils # 23.6 10*3/uL (1.4-7.4); Neutrophils % 90.4 % (38.7-73.9); Platelet Count 229 T/CUMM (130-400); Red Blood Count 2.62 MC/CUMM (3.8-5.5); Red Cell Distribution Width 14.6 % (9.3-17.3); White Blood Count 26.1 T/CUMM (4-12)
[2016-12-30 05:51] LABS: ABG Base Excess 2.6 MMOL/L (-2.5-2.5); ABG HCO3 26.8 MMOL/L (20-26); ABG Oxygen Saturation 99.1 % (95-100); ABG PCO2 39.8 MM HG (35-48); ABG PH 7.446 (7.35-7.45); ABG PO2 252.5 MM HG (80-95); Allen Test Positive; Pt O2 Delivery Device Ventilator
[2016-12-30 06:01] LABS: Calcium 8.1 MG/DL (8.5-10.1); Magnesium 2.4 MG/DL (1.8-2.4); Osmolality,Calculated 277.4 MOS/KG (273-304); Potassium 3.3 MMOL/L (3.5-5.1)
[2016-12-30 06:08] LABS: Band Neutrophils 2 % (0-10); Lymphocytes 14 % (20-55); Segmented Neutrophils 81 % (50-85); Total Cells Counted 100
[2016-12-30 06:09] LABS: Hypochromasia 1+; Microcytosis Slight; Platelet Estimate Adequate
[2016-12-30] MEDS: POTASSIUM CHLORIDE RIDER 10 MEQ in PREMIX 1 EACH IV PRN ×2 (06:21→08:12)
--- NOTE | 2016-12-30 07:37 | XRay Report ---
Referring Physician: Meek SHEFFIELD Exam: XR chest 1V portable Date: December 30, 2016 at 3:13 AM Reason: Respiratory failure Comparison: Chest one view portable December 28, 2016 Findings: An endotracheal tube and feeding tube are again in place. The cardiac silhouette is upper normal in size. Pulmonary venous congestion is suspected, but no focal consolidation is seen. No pneumothorax or definite pleural fluid is identified. The osseous structures appear stable. Impression: Interval improvement in the previously seen pulmonary edema. Persistent venous congestion is suspected. PROCEDURE INTERPRETED AT [facility] DEPARTMENT OF RADIOLOGY Final Report Signed by: Dr. Bridget King
--- NOTE | 2016-12-30 08:18 | EKG Report ---
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
--- NOTE | 2016-12-30 09:08 | Pulmonology Progress Note ---
Pulmonary - PN: Subj Interval history: This 51-year-old white female may have choked on some food in a restaurant. She had cardiopulmonary arrest and is on the ventilator. She has a markedly decreased level of consciousness and probable hypoxic brain injury. Her chest x -ray had shown a right lower lobe infiltrate. We bronchoscoped her yesterday and cleaned out some thick secretions from the right lower lobe. There were no foreign bodies or food elements found. Today's x-ray is clear. Was checking on culture from the bronchial washings and do not see any reports as yet. She is on empiric antibiotics. Exam (Progress Note) - Constitutional Vitals: Period Temp Pulse Resp BP Sys/Rodriguez Pulse Ox Last 24 Hr 96.9 F-99.2 F 69-101 14-30 134-197/63-106 99-100 Exam: Patient is unresponsive. Vital signs normal. Pupils sluggish. Orotracheal tube in place. Neck is supple no bruits. Chest sounds clear. Heart normal rate rhythm no murmurs. Abdomen soft no masses. Extremities no clubbing cyanosis edema. Results - Labs CBC & BMP: 12/30/16 05:00 12/30/16 05:00 - Diagnostic Findings Procedure: Chest x-ray: image reviewed by me (Chest x-ray is clearly improved today ET tube in good position. Right lower lobe infiltrate pretty much resolved.) Assessment and Plan (1) Right lower lobe pneumonia Status: Acute Assessment and plan: Based on yesterday's chest x-ray and endoscopic findings. This was present on admission. We do not have reports back from the bronchial wash cultures as yet. Patient is on broad antibiotics for suspected aspiration pneumonia Current Visit: Yes (2) End-stage renal disease on peritoneal dialysis Status: Acute Assessment and plan: Defer to nephrology Current Visit: Yes (3) Cardiac arrest with ventricular fibrillation Status: Acute Assessment and plan: Regular rhythm now. Apparent hypoxic brain injury. Being assessed neurologically Current Visit: Yes (4) Acute hypoxemic respiratory failure Status: Acute Assessment and plan: ABGs look good. Continuing mechanical ventilation for now until neurologic status is clear. Current Visit: Yes
[2016-12-30] MEDS: fentaNYL INJ 1,250 MCG in SODIUM CHLORIDE 0.9% 225 ML IV SCH (09:56)
[2016-12-30] MEDS: methylPREDNISolone SOD SUC 40 MG/1 ML VIAL IV SCH ×2 (09:57→19:47)
[2016-12-30] MEDS: INSULIN GLARGINE 100 UNIT/ML SUBCUT SCH (09:58)
--- NOTE | 2016-12-30 11:01 | Cardiology Progress Note ---
Assessment and Plan - Time spent with patient Time spent with patient: Less than 30 minutes (1) Acute respiratory failure Status: Acute Assessment and plan: SEE PLAN OF CARE LISTED BELOW. Current Visit: Yes (2) Cardiac arrest with ventricular fibrillation Status: Acute Assessment and plan: SEE PLAN OF CARE LISTED BELOW. Current Visit: Yes (3) Atrial fibrillation Status: Chronic Assessment and plan: SEE PLAN OF CARE LISTED BELOW. Current Visit: Yes (4) ESRD (end stage renal disease) on dialysis Status: Chronic Assessment and plan: SEE PLAN OF CARE LISTED BELOW. Current Visit: No (5) Hypokalemia Status: Acute Assessment and plan: SEE PLAN OF CARE LISTED BELOW. Current Visit: No Cardiology - PN: Subj Interval history: SKY CAP: UNKNOWN Ms. Muniz is a 51 y/o WF who was transferred to us from [place] after a witnessed collapse while eating. She had a cardiac arrest with v. fib and was defibrillated in the field. She has a history of ESRD on dialysis, atrial fibrillation, TIA, heart failure with preserved EF. Her echocardiogram this admission revealed an EF of 40-45%, global hypokinesis, mild mitral regurgitation, severe tricuspid regurgitation, PAP 65-70 mmHg, trace pulmonary regurgitation, mildly enlarged right atrium. She is undergoing EEG today. She has suspected hypoxic brain injury. She underwent a fiberoptic bronchocscopy with pulmonology and was cleared of thick secretions from the right lower lobe. Currently, she is hemodynamically stable and has had no dysrhythmias noted. Dr. Weber to follow with further plan and addendum. ASSESSMENT/PLAN: 1. ACUTE RESPIRATORY FAILURE - Pulmonology following. She is status post bronchoscopy today. Remains intubated and on mechanical ventilation. 2. CARDIAC ARREST WITH VFIB - Apparently Ms. Muniz was seen after collapsing while eating and was defibrillated in the field. She is now minimally responsive and on mechanical ventilation. Her potassium of 2.2 could have certainly contributed to her V.fib episode. 3. ATRIAL FIBRILLATION - With history of TIA. 4. ESRD - Creatinine up to 9.2 with GFR 5. 5. HYPOKALEMIA - Potassium 2.2 on admission. This is still being replaced. Potassium is up to 3.3 today. Exam (Progress Note) - Constitutional Vitals: Period Temp Pulse Resp BP Sys/Rodriguez Pulse Ox Last 24 Hr 96.9 F-99.2 F 69-101 14-30 134-197/63-106 99-100 Exam: General appearance: Orally intubated and on ventilator. Overweight, nonresponsive. - Head Head exam: Present: normal inspection, normocephalic, atraumatic. Absent: hematoma, laceration - Eye Eye exam: Absent: conjunctival injection, nystagmus, periorbital swelling, scleral icterus, laceration to eyelids Pupils: Present: sluggish. - ENT ENT exam: Present: Orally intubated, normal external ear exam - Neck Neck exam: Present: normal inspection. Absent: lymphadenopathy, meningismus, tenderness, thyromegaly - Respiratory Respiratory exam: Present: Mechanically ventilated breath sounds. Absent: accessory muscle use - Cardiovascular Cardiovascular exam: Present: Irregular rate and rhythm. Absent: carotid bruit , gallop, JVD, rubs, murmur - GI/Abdominal GI/Abdominal exam: Present: normal bowel sounds, soft. Absent: distended, firm , guarding, hernia, mass, tenderness, rebound. - Extremities Exam Extremities exam: Present: normal inspection, normal capillary refill. Upper extremity pulses 2+. Lower extremity pulses 2+. Absent: calf tenderness, edema - Back Exam Back exam: Present: Unable to examine due to habitus. On mechanical ventilator. - Neurological Exam Neurological exam: Present: Limited due to habitus (on ventilator). Arousable to verbal stimuli. No resting or essential tremor. - Psychiatric Psychiatric exam: Present: Unable to adequately assess due to patient being on mechanical ventilation. - Skin Skin exam: Present: normal color, warm, dry, intact. Absent: cyanosis, diaphoretic, rash, urticaria Result/EKG - Labs CBC & BMP: 12/30/16 05:00 12/30/16 05:00 Lab Results: I have reviewed the past 24 hour labs Labs: Laboratory Results - last 24 hr 12/29/16 12/29/16 12/29/16 10:14 11:18 11:21 WBC RBC Hgb Hct MCV MCH MCHC RDW Plt Count MPV Neut % (Auto) Lymph % (Auto) [place] % (Auto) Eos % (Auto) Baso % (Auto) Neut # (Auto) Lymph # (Auto) [place] # (Auto) Eos # (Auto) Baso # (Auto) Total Counted Immature Gran % Nucleated RBC % Immature Gran # Segmented Neutrophils Band Neutrophils Lymphocytes Monocytes Nucleated RBCs # Platelet Estimate Hypochromasia Microcytosis Circ Anticoag PTT ABG pH 7.343 L ABG pCO2 43.2 ABG pO2 103.0 H ABG HCO3 22.6 ABG Total CO2 21.6 L ABG O2 Saturation 97.1 ABG Base Excess -2.2 FiO2 80.00 Sodium Potassium Chloride Carbon Dioxide Anion Gap BUN Creatinine GFR Calculation BUN/Creatinine Ratio Glucose POC Glucose 382 H Calculated Osmolality Calcium Magnesium Troponin I 1.960 H 12/29/16 12/29/16 12/29/16 12:44 12:44 12:44 WBC RBC Hgb Hct MCV MCH MCHC RDW Plt Count MPV Neut % (Auto) Lymph % (Auto) [place] % (Auto) Eos % (Auto) Baso % (Auto) Neut # (Auto) Lymph # (Auto) [place] # (Auto) Eos # (Auto) Baso # (Auto) Total Counted Immature Gran % Nucleated RBC % Immature Gran # Segmented Neutrophils Band Neutrophils Lymphocytes Monocytes Nucleated RBCs # Platelet Estimate Hypochromasia Microcytosis Circ Anticoag PTT 32.4 D ABG pH ABG pCO2 ABG pO2 ABG HCO3 ABG Total CO2 ABG O2 Saturation ABG Base Excess FiO2 Sodium Potassium 2.8 L Chloride Carbon Dioxide Anion Gap BUN Creatinine GFR Calculation BUN/Creatinine Ratio Glucose POC Glucose Calculated Osmolality Calcium Magnesium Troponin I 2.340 H 12/29/16 12/29/16 12/29/16 17:05 18:06 19:11 WBC RBC Hgb Hct MCV MCH MCHC RDW Plt Count MPV Neut % (Auto) Lymph % (Auto) [place] % (Auto) Eos % (Auto) Baso % (Auto) Neut # (Auto) Lymph # (Auto) [place] # (Auto) Eos # (Auto) Baso # (Auto) Total Counted Immature Gran % Nucleated RBC % Immature Gran # Segmented Neutrophils Band Neutrophils Lymphocytes Monocytes Nucleated RBCs # Platelet Estimate Hypochromasia Microcytosis Circ Anticoag PTT 30.9 ABG pH ABG pCO2 ABG pO2 ABG HCO3 ABG Total CO2 ABG O2 Saturation ABG Base Excess FiO2 Sodium Potassium 3.0 L Chloride Carbon Dioxide Anion Gap BUN Creatinine GFR Calculation BUN/Creatinine Ratio Glucose POC Glucose 105 Calculated Osmolality Calcium Magnesium Troponin I 12/30/16 12/30/16 12/30/16 00:34 05:00 05:00 WBC 26.1 H RBC 2.62 L Hgb 8.5 L Hct 24.3 L MCV 92.7 MCH 32 MCHC 35.0 RDW 14.6 Plt Count 229 D MPV 10.3 Neut % (Auto) 90.4 H Lymph % (Auto) 6.[address] [place] % (Auto) 2.1 Eos % (Auto) 0.0 Baso % (Auto) 0.1 Neut # (Auto) 23.6 H Lymph # (Auto) 1.7 [place] # (Auto) 0.5 Eos # (Auto) 0.0 Baso # (Auto) 0.0 Total Counted 100 Immature Gran % 1.0 Nucleated RBC % 0.0 Immature Gran # 0.25 Segmented Neutrophils 81 Band Neutrophils 2 Lymphocytes 14 L Monocytes 3 Nucleated RBCs # 0.00 Platelet Estimate Adequate Hypochromasia 1+ Microcytosis Slight Circ Anticoag PTT ABG pH ABG pCO2 ABG pO2 ABG HCO3 ABG Total CO2 ABG O2 Saturation ABG Base Excess FiO2 Sodium 133 L Potassium 3.3 L Chloride 91 L Carbon Dioxide 26 Anion Gap 19.3 H BUN 40 H Creatinine 9.20 H GFR Calculation 5 BUN/Creatinine Ratio 4.00 L Glucose 143 H POC Glucose 177 H Calculated Osmolality 277.4 Calcium 8.1 L Magnesium 2.4 Troponin I 12/30/16 12/30/16 05:16 05:40 WBC RBC Hgb Hct MCV MCH MCHC RDW Plt Count MPV Neut % (Auto) Lymph % (Auto) [place] % (Auto) Eos % (Auto) Baso % (Auto) Neut # (Auto) Lymph # (Auto) [place] # (Auto) Eos # (Auto) Baso # (Auto) Total Counted Immature Gran % Nucleated RBC % Immature Gran # Segmented Neutrophils Band Neutrophils Lymphocytes Monocytes Nucleated RBCs # Platelet Estimate Hypochromasia Microcytosis Circ Anticoag PTT ABG pH 7.446 ABG pCO2 39.8 ABG pO2 252.5 H ABG HCO3 26.8 H ABG Total CO2 28.0 H ABG O2 Saturation 99.1 ABG Base Excess 2.6 H FiO2 60.00 Sodium Potassium Chloride Carbon Dioxide Anion Gap BUN Creatinine GFR Calculation BUN/Creatinine Ratio Glucose POC Glucose 147 H Calculated Osmolality Calcium Magnesium Troponin I - EKG EKG results: interpreted by me EKG shows: atrial fibrillation
[2016-12-30] MEDS: ENOXAPARIN 30 MG/0.3 ML SYRINGE SUBCUT SCH (13:19)
--- NOTE | 2016-12-30 14:11 | Hospitalist Progress Note ---
Assessment and Plan (1) Cardiac arrest with ventricular fibrillation Status: Acute Assessment and plan: amiodarone stopped, changed to metoprolol 25 mg po bid, Dr. Weber Current Visit: Yes (2) Anoxic brain injury Status: Acute Assessment and plan: due to cardiac arrest Current Visit: Yes (3) Anemia Status: Acute Assessment and plan: occult stool, 2 units of prbc with dialysis tomorrow Current Visit: No (4) Leukocytosis Status: Acute Assessment and plan: cbc in am, blood cx times 2, cont clindamycin and levaquin Current Visit: No (5) Hypokalemia Status: Chronic Assessment and plan: replaced and recheck Current Visit: No (6) Atrial fibrillation Status: Chronic Assessment and plan: hx of afib in past, hold heparin for now due to drop in hgb Current Visit: Yes (7) End-stage renal disease on peritoneal dialysis Status: Chronic Assessment and plan: peritoneal dialysis plan for in am, Dr. Ring managing Current Visit: No (8) Acute respiratory failure Status: Acute Assessment and plan: patient breathing over vent, aspiration on cxr clindamycin and levaquin Current Visit: Yes Hospitalist: Subjective Interval history: Pupils are sluggish to response. No response to painful stimuli. She does have a gag reflex and is breathing over the vent. EEG was done this morning results are still pending. Dr. Campat to see her today. Dr. Weber is weaning her off the amiodarone and switching her to metoprolol twice a day. Patient is on the ventilator but is not receiving any sedation. Exam - Constitutional Vitals: Period Temp Pulse Resp BP Sys/Rodriguez Pulse Ox Last 24 Hr 97.8 F-99.2 F 69-101 14-30 134-188/63-106 98-100 Exam: Heart Rate-[RRR] Lungs-[bilateral rhonchi ] GI-[+bs soft, NT] Ext-[no edema] Neuro pupils sluggish, no response to painful stimuli or command, does have a gag reflex and does breathe over the vent psych agitated General [mild acute distress] Results - Labs CBC & BMP: 12/30/16 05:00 12/30/16 12:53 Lab Results: I have reviewed the past 24 hour labs Labs: bronchial washing normal cassy, blood cx negative times 2 negative, ascites no growth - Diagnostic Findings Procedure: Chest x-ray: report reviewed by me (pul edema ), Ultrasound: report reviewed by me (no dvt )
--- NOTE | 2016-12-30 14:25 | Neurology Consult Note ---
History of Present Illness History of present illness: Patient is unable to provide me any history due to intubation. History basically obtained from the chart. Ms. Muniz is a 51 year old right-handed white lady with history of end- stage renal disease on peritoneal dialysis, type I diabetes, A. fib, COPD, diastolic heart failure (EF 60%,) TIA, presented with a cardiac arrest. Patient was reportedly eating a steak and somehow became apneic. When paramedics arrived she was not breathing and then intubated in the field. She was in ventricular fibrillation. She also received lidocaine and epinephrine. She was taken first to [place]. She was then transferred by air care to [facility] due to persistent runs of ventricular tachycardia she was bolused with amiodarone in route. When she arrived in the [place] emergency department she was given potassium and magnesium for low potassium and magnesium. CT head was reveals no acute pathology. Home Medications Medication Instructions Recorded Confirmed Type Calcium Acetate [Phoslo] 2,001 mg PO TID W/MEALS 08/18/16 09/06/16 History Escitalopram [Lexapro] 10 mg PO BEDTIME 08/18/16 09/06/16 History Insulin Detemir [Levemir] 60 unit SUBCUT DAILY 08/18/16 09/06/16 History Calcium Acetate 1,334 mg PO BID 09/04/16 09/06/16 History Cinacalcet HCl [Sensipar] 60 mg PO DAILY W/LUNCH 09/04/16 09/06/16 History Metoclopramide HCl 5 mg PO ACHS 09/04/16 09/06/16 History Acetaminophen Tab [Tylenol Tab] 325 mg PO Q4H PRN #0 tablet 09/06/16 09/06/16 Rx Epoetin Beau [Epogen] 8,000 unit SUBCUT MoWeFr@0900 vial 09/06/16 09/06/16 Rx Gabapentin Cap/Tab [Neurontin 300 mg PO TID #0 09/06/16 09/06/16 Rx Cap/Tab] HYDROcodone/ACETAMIN 7.5-325 1 tablet PO Q4H PRN 09/06/16 09/06/16 History [[place] 7.5-325] Insulin Lispro [HumaLOG] See Protocol SUBCUT ACHS 09/06/16 09/06/16 History Magnesium Hydroxide Susp [Milk of 30 ml PO Q6H PRN #0 udcup 09/06/16 09/06/16 Rx Magnesia] Nicotine 21 mg/24 Hr Patch 1 patch TRANSDERM DAILY PRN #0 09/06/16 09/06/16 Rx [Nicoderm CQ 21 mg/24 hr Patch] patch Pantoprazole Tab [Protonix Tab] 40 mg PO DAILY tablet 09/06/16 09/06/16 Rx Potassium Chloride Cap/Tab [K Dur] 20 meq PO DAILY tablet 09/06/16 09/06/16 Rx Insulin Glargine [Lantus] 10 unit SUBCUT BEDTIME injection 09/20/16 Rx traZODone [Desyrel] 100 mg PO BEDTIME PRN #0 tablet 09/20/16 Rx Allergies Allergy/AdvReac Type Severity Reaction Status Date / Time cefuroxime [From Ceftin] Allergy RASH Verified 09/04/16 08:49 doxercalciferol Allergy ANAPHYLAXIS Verified 09/04/16 08:49 [From Hectorol] Sulfa (Sulfonamide Allergy RASH Verified 09/04/16 08:49 Antibiotics) ROS unobtainable: due to endotracheal tube, due to mental status Medical,Surgical,& Family Hx - Medical History Cardio: History of: Hypertension, [place] (2005) No history of: Cardiac Dysrhythmia, CHF, Pacemaker, Valvular Heart Disease Psychological: History of: Anxiety Disorders, Behavior Problems, Depression Neurology: History of: Cerebrovascular Accident (PATIENT STATES SHE WAS TOLD SHE HAD STROKE), Migraine, Peripheral Neuropathy No history of: Seizures Endocrine: History of: Diabetes Mellitus (IDDM), Diabetes Mellitus (NIDDM) Respiratory: History of: Bronchitis, Pneumonia (2014) Renal: History of: Dialysis (peritoneal dialysis), Renal Failure Gastrointestinal: History of: GERD, GI Problems (diarrhea/constipation) Musculoskeletal: History of: Back/Neck Problems (generalized neck pain) Other: History of: Anesthesia Reactions, Miscellaneous Medical Problems ( hypertension and CVA are listed on her triage sheet but the patient denies ) - Surgical History Cardiac Surgeries: Patient Denies: Cardiac Catheterization Abdominal Surgeries: Surgical HX of: EGD Reproductive Surgeries: Surgical HX of;: Hysterectomy Patient denies;: Genitourinary Surgery Orthopedic Surgeries: Surgical HX of;: Orthopedic Surgery (NECK SURGERY FOR RUPTURED DISK) - Family History Family History: Reports;: Family Cancer, Family Diabetes (mother), Family Heart Disease (grandfather, mother), Family Hypertension, Family Stroke Denies;: Family Anesthesia Reaction - Social History Smoking Status: Current every day smoker Frequency of Alcohol Use: Unknown Type of Drug Use: Unknown Exam - Constitutional Vitals: Period Temp Pulse Resp BP Sys/Rodriguez Pulse Ox Last 24 Hr 97.8 F-99.2 F 69-101 14-30 134-188/63-106 98-100 Exam: GENERAL: Patient is in no acute distress. NECK: Neck is supple. There is no JVD. No carotid bruits present. No thyroid masses. CVS: First and second heart sounds are normal. There is no S3 present. Regular rate and rhythm. RESPIRATORY: Lungs are clear to auscultation without any rales or rhonchi. ABDOMEN: Soft and non-tender. Bowel sounds are present. There is no hepatosplenomegaly. EXT: There is no palpable edema. Peripheral pulses are present. Skin: No rashes Central Nervous system: General: Unresponsive Speech: None Comprehension: None Facial expressions: Normal Cranial Nerves: Pupils are 3-4 mm nonreactive. Doll's head eye movements are negative. Corneals are absent. Motor: Bulk and Tone is normal. Strength: No spontaneous movement seen. Sensory: No movement seen on deep painful stimuli. Reflexes: Absent Cerebellar function: Cannot be assessed Toes: Equivocal Gait: Cannot be assessed Impression: Anoxic/hypoxic encephalopathy and brain injury Recommendations: Continue supportive management EEG Repeat CT head without contrast. Prognosis is guarded Results - Labs CBC & BMP: 12/30/16 05:00 12/30/16 12:53
[2016-12-30] MEDS: ASPIRIN EC 81 MG TABLET PO SCH (14:32)
[2016-12-30] MEDS: METOPROLOL TARTRATE 25 MG TABLET PO SCH ×2 (14:32→20:08)
--- NOTE | 2016-12-30 14:39 | Nephrology Progress Note ---
Nephrology - PN: Subj Interval history: Patient admitted for cardiac arrest. She is intubated and sedate. Physical exam general the patient is chronically ill-appearing, pupils are nonreactive, heart is regular rate and rhythm, she has no pitting edema, lungs are clear to auscultation anteriorly, abdomen is soft with positive bowel sounds Assessment/plan 1. End-stage renal disease-we will continue PD 4 times a day 2. Cardiac arrest management per cardiology 3. Respiratory failure continue vent support 4. Probable hypoxic brain injury-patient is being seen by neurology 5. Hypokalemia-we will continue supplementation of this. Exam (PN)-Nephrology - Vital Signs Vital signs: Period Temp Pulse Resp BP Sys/Rodriguez Pulse Ox Last 24 Hr 97.8 F-99.2 F 69-101 14-30 134-188/63-106 98-100 - Lab 12/30/16 05:00 12/30/16 12:53 Most recent lab results ABG pH 7.446 (7.35-7.45) 12/30/16 05:40 ABG pCO2 39.8 MM HG (35-48) 12/30/16 05:40 ABG pO2 252.5 MM HG (80-95) H 12/30/16 05:40 ABG HCO3 26.8 MMOL/L (20-26) H 12/30/16 05:40 ABG O2 Saturation 99.1 % (95-100) 12/30/16 05:40 Calcium 8.1 MG/DL (8.5-10.1) L 12/30/16 05:00 Magnesium 2.4 MG/DL (1.8-2.4) 12/30/16 05:00
[2016-12-30] MEDS: ROSUVASTATIN 10 MG TABLET PO SCH (20:07)
[2016-12-30] MEDS: hydrALAZINE 20 MG/1 ML VIAL IV PRN (21:42)
[2016-12-31] MEDS ORDERED: ACETAMINOPHEN 325 MG TABLET PO PRN (00:02)
[2016-12-31] MEDS: IBUPROFEN 400 MG TABLET PO PRN ×2 (00:08→20:31)
[2016-12-31] MEDS: INSULIN LISPRO 100 UNIT/ML SUBCUT SCH ×4 (00:08→18:57)
[2016-12-31] MEDS: NITROGLYCERIN 2% OINT 1 INCH/GM PACK TOP SCH ×4 (00:09→18:57)
[2016-12-31] MEDS: CLINDAMYCIN INJ 600 MG in PREMIX 1 EACH IV SCH ×3 (00:09→18:19)
[2016-12-31 03:55] LABS: ABG Base Excess 0.7 MMOL/L (-2.5-2.5); ABG HCO3 25.1 MMOL/L (20-26); ABG Oxygen Saturation 99.3 % (95-100); ABG PCO2 38.7 MM HG (35-48); ABG TCO2 23.3 MMOL/L (23-27); Allen Test Positive; Pt O2 Delivery Device Ventilator
--- NOTE | 2016-12-31 07:09 | Pulmonology Progress Note ---
Pulmonary - PN: Subj Interval history: This 51-year-old white female may have choked on some food in a restaurant. She had cardiopulmonary arrest and is on the ventilator. She has a markedly decreased level of consciousness and probable hypoxic brain injury. Her chest x -ray had shown a right lower lobe infiltrate. We bronchoscoped her yesterday and cleaned out some thick secretions from the right lower lobe. There were no foreign bodies or food elements found. Today's x-ray is clear. Was checking on culture from the bronchial washings and do not see any reports as yet. She is on empiric antibiotics. 12/31/2016 neurologically patient is not showing any improvement. Her ABGs and chest x-ray look okay. Bronchial washings cultures were negative. Continue antibiotics and mechanical ventilatory support. EEG is pending. Neurology has seen her yesterday and is following. Prognosis does not look good from a neurologic standpoint. Exam (Progress Note) - Constitutional Vitals: Period Temp Pulse Resp BP Sys/Rodriguez Pulse Ox Last 24 Hr 99.0 F-101.1 F 72-105 12-26 95-191/48-96 95-100 Exam: Patient is unresponsive. Vital signs normal. Pupils midpoint and very sluggish at best. Orotracheal tube in place. Neck is supple no bruits. Chest sounds clear. Heart normal rate rhythm no murmurs. Abdomen soft no masses. Extremities no clubbing cyanosis edema. Results - Labs CBC & BMP: 12/30/16 05:00 12/30/16 12:53 Lab Results: I have reviewed the past 24 hour labs - Diagnostic Findings Procedure: Chest x-ray: image reviewed by me (ET tube good position. Lungs essentially clear.) Assessment and Plan (1) Right lower lobe pneumonia Status: Acute Assessment and plan: Based on yesterday's chest x-ray and endoscopic findings. This was present on admission. We do not have reports back from the bronchial wash cultures as yet. Patient is on broad antibiotics for suspected aspiration pneumonia 12/31/2016 radiographically pneumonia has improved considerably. We did clean out retained secretions Friday. I have just had some atelectasis related to that. Cultures have been negative. Continuing empiric antibiotics suspicious for aspiration. Current Visit: Yes (2) End-stage renal disease on peritoneal dialysis Status: Acute Assessment and plan: Defer to nephrology 12/31/2016 continuing peritoneal dialysis. Current Visit: Yes (3) Cardiac arrest with ventricular fibrillation Status: Acute Assessment and plan: Regular rhythm now. Apparent hypoxic brain injury. Being assessed neurologically 12/31/2016 blood pressure stable. Severe hypoxic brain injury apparently. Continuing to follow. Current Visit: Yes (4) Acute hypoxemic respiratory failure Status: Acute Assessment and plan: ABGs look good. Continuing mechanical ventilation for now until neurologic status is clear. 12/31/2016 ABGs look good. Cannot wean until we can tell what her mental status is going to be. Current Visit: Yes
--- NOTE | 2016-12-31 07:10 | Nephrology Progress Note ---
Nephrology - PN: Subj Interval history: Patient is opening her eyes spontaneously but does not appear to fix and follow she does intermittently have shakes and seems to have a tendency to hold her right arm and hand in a decerebrate position. Physical exam general the patient's chronically ill-appearing, heart is regular rate and rhythm, she has no pitting edema, lungs are clear to auscultation anteriorly, abdomen is soft with positive bowel sounds, neuro-patient opens eyes spontaneously but does not fix and follow she shakes intermittently when stimulated Assessment/plan 1. End-stage renal disease-we will continue peritoneal dialysis support this is progressing well 2. Cardiac arrest-it would appear this patient has some hypoxic brain injury, neurology is following 3. Aspiration pneumonia-we will continue antibiotics 4. Respiratory failure continue vent support Exam (PN)-Nephrology - Vital Signs Vital signs: Period Temp Pulse Resp BP Sys/Rodriguez Pulse Ox Last 24 Hr 99.0 F-101.1 F 72-105 12-26 95-191/48-96 95-100 - Lab 12/30/16 05:00 12/30/16 12:53 Most recent lab results ABG pH 7.420 (7.35-7.45) 12/31/16 03:48 ABG pCO2 38.7 MM HG (35-48) 12/31/16 03:48 ABG pO2 133.0 MM HG (80-95) H 12/31/16 03:48 ABG HCO3 25.1 MMOL/L (20-26) 12/31/16 03:48 ABG O2 Saturation 99.3 % (95-100) 12/31/16 03:48 Calcium 8.1 MG/DL (8.5-10.1) L 12/30/16 05:00 Magnesium 2.4 MG/DL (1.8-2.4) 12/30/16 05:00
--- NOTE | 2016-12-31 07:31 | XRay Report ---
Referring Physician: Jordan Mora MD Exam: XR chest 1V portable Date: December 31, 2016 at 3:06 AM Reason: On ventilator Comparison: Chest one view portable December 30, 2016 Findings: An endotracheal tube and feeding tube are again in place. The cardiac silhouette is upper normal in size. There is mild perihilar and right basilar density. This likely represents mild pulmonary edema and mild right pleural fluid. Pneumonia is not excluded but is felt less likely. No pneumothorax is identified. The osseous structures appear stable. Impression: There is mild perihilar and right basilar density. This likely represents mild pulmonary edema and mild right pleural fluid. PROCEDURE INTERPRETED AT [facility] Final Report Signed by: Dr. Bridget King
[2016-12-31 08:51] LABS: Hematocrit 29.2 VOL% (35.7-47.0); Hemoglobin 10.2 GM/DL (12.0-16.0)
[2016-12-31 08:52] LABS: Basophils % 0.1 % (0.0-0.8); Hematocrit 28.6 VOL% (35.7-47.0); Immature Granulocytes % 1.1 %; Immature Granulocytes Absolute 0.19 #; Lymphocytes # 1.8 10*3/uL (1.4-4.0); Lymphocytes % 10.7 % (21.3-54.2); Mean Corpuscular Hemoglobin 32 PG (27-34); Mean Platelet Volume 10.1 FL (9.6-12.0); Monocytes # 0.8 10*3/uL (0.11-0.8); Monocytes % 4.8 % (1.7-12.7); NRBC # 0.05 10*3/uL; Neutrophils # 14.3 10*3/uL (1.4-7.4); Neutrophils % 83.3 % (38.7-73.9); Platelet Count 209 T/CUMM (130-400); Red Blood Count 3.11 MC/CUMM (3.8-5.5); White Blood Count 17.1 T/CUMM (4-12)
--- NOTE | 2016-12-31 08:57 | Cardiology Progress Note ---
Assessment and Plan (1) Acute respiratory failure Status: Acute Assessment and plan: SEE PLAN OF CARE LISTED BELOW. Current Visit: Yes (2) Cardiac arrest with ventricular fibrillation Status: Acute Assessment and plan: SEE PLAN OF CARE LISTED BELOW. Current Visit: Yes (3) Atrial fibrillation Status: Chronic Assessment and plan: SEE PLAN OF CARE LISTED BELOW. Current Visit: Yes (4) ESRD (end stage renal disease) on dialysis Status: Chronic Assessment and plan: SEE PLAN OF CARE LISTED BELOW. Current Visit: No (5) Hypokalemia Status: Acute Assessment and plan: SEE PLAN OF CARE LISTED BELOW. Current Visit: No (6) Hypertension Status: Chronic Assessment and plan: SEE PLAN OF CARE LISTED BELOW. 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 Muniz is a 51 y/o WF who was transferred to us from [place] after a witnessed collapse while eating. She had a cardiac arrest with v. fib and was defibrillated in the field. She has a history of ESRD on periotoneal dialysis, atrial fibrillation, TIA, heart failure with preserved EF. Her echocardiogram this admission revealed an EF of 40-45%, global hypokinesis, mild mitral regurgitation, severe tricuspid regurgitation, PAP 65-70 mmHg, trace pulmonary regurgitation, mildly enlarged right atrium. EEG is pending. She has suspected hypoxic brain injury and has had poor neurological recovery thus far. She underwent a fiberoptic bronchocscopy with pulmonology and was cleared of thick secretions from the right lower lobe. Currently, she is hemodynamically stable and has had no dysrhythmias noted. She is tolerating CPAP trials and withdraws to painful stimuli but has no purposeful movements. Dr. Weber to follow with further plan and addendum. ASSESSMENT/PLAN: 1. ACUTE RESPIRATORY FAILURE - Pulmonology following. She is status post bronchoscopy today. Remains intubated and on mechanical ventilation. 2. CARDIAC ARREST WITH VFIB - Apparently Ms. Muniz was seen after collapsing while eating and was defibrillated in the field. She is now minimally responsive and on mechanical ventilation. Her potassium of 2.2 could have certainly contributed to her V.fib episode. She did have troponin leak, mild cardiomyopathy. She will need ischemic evaluation, if/when her condition improves. There was no STEMI. Hypokalemia was likely a major factor in her arrhythmia. copnt to monitor BMP/Mg and replete. 3. ATRIAL FIBRILLATION - With history of TIA. She has been started on aspirin, amiodarone infusion has been stopped and she was started on Metoprolol 25mg PO BID. 4. ESRD - Creatinine up to 9.9 with GFR 4. Nephrology is following and plans to continue with her peritoneal dialysis support. 5. HYPOKALEMIA - Potassium 2.2 on admission. This is still being replaced. Potassium is up to 3.3 today. 6. HYPERTENSION - Will continue to monitor. May increase beta-tori if needed. Exam (Progress Note) - Constitutional Vitals: Period Temp Pulse Resp BP Sys/Rodriguez Pulse Ox Last 24 Hr 99.0 F-101.1 F 72-105 12-26 95-191/48-96 95-100 Exam: General appearance: Orally intubated and on ventilator. Overweight, nonresponsive. - Head Head exam: Present: normal inspection, normocephalic, atraumatic. Absent: hematoma, laceration - Eye Eye exam: Absent: conjunctival injection, nystagmus, periorbital swelling, scleral icterus, laceration to eyelids Pupils: Present: sluggish. - ENT ENT exam: Present: Orally intubated, normal external ear exam - Neck Neck exam: Present: normal inspection. Absent: lymphadenopathy, meningismus, tenderness, thyromegaly - Respiratory Respiratory exam: Present: Mechanically ventilated breath sounds. Absent: accessory muscle use - Cardiovascular Cardiovascular exam: Present: Irregular rate and rhythm. Absent: carotid bruit , gallop, JVD, rubs, murmur - GI/Abdominal GI/Abdominal exam: Present: normal bowel sounds, soft. Absent: distended, firm , guarding, hernia, mass, tenderness, rebound. - Extremities Exam Extremities exam: Present: normal inspection, normal capillary refill. Upper extremity pulses 2+. Lower extremity pulses 2+. Absent: calf tenderness, edema - Back Exam Back exam: Present: Unable to examine due to habitus. On mechanical ventilator. - Neurological Exam Neurological exam: Present: Limited due to habitus (on ventilator). Withdraws from painful stimuli. Eyes will open spontaneously but do not appear to fixate. She has no purposeful movements. - Psychiatric Psychiatric exam: Present: Unable to adequately assess due to patient being on mechanical ventilation. - Skin Skin exam: Present: normal color, warm, dry, intact. Absent: cyanosis, diaphoretic, rash, urticaria Result/EKG - Labs CBC & BMP: 12/31/16 08:32 12/31/16 08:32 Lab Results: I have reviewed the past 24 hour labs Labs: Laboratory Results - last 24 hr 12/30/16 12/30/16 12/30/16 12:08 12:33 12:53 WBC RBC Hgb Hct MCV MCH MCHC RDW Plt Count MPV Neut % (Auto) Lymph % (Auto) [place] % (Auto) Eos % (Auto) Baso % (Auto) Neut # (Auto) Lymph # (Auto) [place] # (Auto) Eos # (Auto) Baso # (Auto) Immature Gran % Nucleated RBC % Immature Gran # Nucleated RBCs # ABG pH ABG pCO2 ABG pO2 ABG HCO3 ABG Total CO2 ABG O2 Saturation ABG Base Excess FiO2 Potassium 3.7 POC Glucose 137 H 161 H Blood Type Antibody Screen Crossmatch 12/30/16 12/30/16 12/30/16 14:52 16:51 23:50 WBC RBC Hgb Hct MCV MCH MCHC RDW Plt Count MPV Neut % (Auto) Lymph % (Auto) [place] % (Auto) Eos % (Auto) Baso % (Auto) Neut # (Auto) Lymph # (Auto) [place] # (Auto) Eos # (Auto) Baso # (Auto) Immature Gran % Nucleated RBC % Immature Gran # Nucleated RBCs # ABG pH ABG pCO2 ABG pO2 ABG HCO3 ABG Total CO2 ABG O2 Saturation ABG Base Excess FiO2 Potassium POC Glucose 149 H 242 H Blood Type O POSITIVE Antibody Screen Negative Crossmatch See Detail 12/31/16 12/31/16 12/31/16 03:48 05:32 08:32 WBC 17.1 H D RBC 3.11 L Hgb 10.0 L Hct 28.6 L MCV 92.0 MCH 32 MCHC 35.0 RDW 15.0 Plt Count 209 MPV 10.1 Neut % (Auto) 83.3 H Lymph % (Auto) 10.7 L [place] % (Auto) 4.8 Eos % (Auto) 0.0 Baso % (Auto) 0.1 Neut # (Auto) 14.3 H Lymph # (Auto) 1.8 [place] # (Auto) 0.8 Eos # (Auto) 0.0 Baso # (Auto) 0.0 Immature Gran % 1.1 Nucleated RBC % 0.3 Immature Gran # 0.19 Nucleated RBCs # 0.05 ABG pH 7.420 ABG pCO2 38.7 ABG pO2 133.0 H ABG HCO3 25.1 ABG Total CO2 23.3 ABG O2 Saturation 99.3 ABG Base Excess 0.7 FiO2 35.00 Potassium POC Glucose 165 H Blood Type Antibody Screen Crossmatch 12/31/16 08:32 WBC RBC Hgb 10.2 L Hct 29.2 L MCV MCH MCHC RDW Plt Count MPV Neut % (Auto) Lymph % (Auto) [place] % (Auto) Eos % (Auto) Baso % (Auto) Neut # (Auto) Lymph # (Auto) [place] # (Auto) Eos # (Auto) Baso # (Auto) Immature Gran % Nucleated RBC % Immature Gran # Nucleated RBCs # ABG pH ABG pCO2 ABG pO2 ABG HCO3 ABG Total CO2 ABG O2 Saturation ABG Base Excess FiO2 Potassium POC Glucose Blood Type Antibody Screen Crossmatch
[2016-12-31] MEDS: LEVOFLOXACIN INJ 250 MG in PREMIX 1 EACH IV SCH (08:58)
[2016-12-31] MEDS: methylPREDNISolone SOD SUC 40 MG/1 ML VIAL IV SCH ×2 (08:59→20:30)
[2016-12-31] MEDS: INSULIN GLARGINE 100 UNIT/ML SUBCUT SCH (08:59)
[2016-12-31] MEDS: ASPIRIN EC 81 MG TABLET PO SCH (09:00)
[2016-12-31] MEDS: METOPROLOL TARTRATE 25 MG TABLET PO SCH ×2 (09:00→20:31)
[2016-12-31 09:46] LABS: Calcium 7.9 MG/DL (8.5-10.1); Magnesium 2.3 MG/DL (1.8-2.4); Osmolality,Calculated 279.4 MOS/KG (273-304); Potassium 3.3 MMOL/L (3.5-5.1)
--- NOTE | 2016-12-31 13:37 | Hospitalist Progress Note ---
Assessment and Plan (1) Cardiac arrest with ventricular fibrillation Status: Acute Assessment and plan: cont metoprolol 25 mg po bid, Dr. Weber Current Visit: Yes (2) Anoxic brain injury Status: Acute Assessment and plan: due to cardiac arrest Current Visit: Yes (3) Anemia Status: Acute Assessment and plan: Patient received 2 units packed red blood cells and hemoglobin has improved to 10.2 Current Visit: No (4) Leukocytosis Status: Acute Assessment and plan: Continue clindamycin and Levaquin, white count has improved to 17 Current Visit: No (5) Hypokalemia Status: Chronic Assessment and plan: replaced today and recheck daily Current Visit: No (6) Atrial fibrillation Status: Chronic Assessment and plan: hx of afib in past, no anticoagulation for now, await guaiac of stool Current Visit: Yes (7) End-stage renal disease on peritoneal dialysis Status: Chronic Assessment and plan: peritoneal dialysis by Dr. Peterson Current Visit: No (8) Acute respiratory failure Status: Acute Assessment and plan: pulmonary edema, Dr. Peterson will alter the dextrose in the PD to pull off more fluid, will start tube feeding Current Visit: Yes Hospitalist: Subjective Interval history: Neurologically patient continues to respond to pain. But she does not obey commands. Unable to wean from the ventilator as her concern that she would not be able to protect her airway. Will have to discuss with daughter whether she is going to go to court to overrule her brother or if we need to go ahead and trach and PEG. Exam - Constitutional Vitals: Period Temp Pulse Resp BP Sys/Rodriguez Pulse Ox Last 24 Hr 99.0 F-101.1 F 74-771 12-26 95-191/48-96 95-100 Exam: Heart Rate-[RRR] Lungs-[clear] GI-[+bs soft, NT] Ext-[no edema] Neuro pupils responsive but sluggish, no response to verbal commands, but does respond to pain psych agitated when touch General [no acute distress] Results - Labs CBC & BMP: 12/31/16 08:32 12/31/16 08:32 Lab Results: I have reviewed the past 24 hour labs Labs: Blood cultures 2 negative, bronchial washings negative, ascitic fluid negative no growth - Diagnostic Findings Procedure: Chest x-ray: report reviewed by me (pul edema )
[2016-12-31] MEDS: ENOXAPARIN 30 MG/0.3 ML SYRINGE SUBCUT SCH (14:07)
--- NOTE | 2016-12-31 16:24 | Electroencephalogram ---
HISTORY: A 51-year-old patient with a history of seizures INTRODUCTION: A digital EEG was performed using the standard 10/20 system of electrode placement wi th one channel of EKG monitoring. Photic stimulation is performed. DESCRIPTION OF RECORD: The background is very disorganized, consists of 7 to 8 hertz low amplitude bilaterally symmetrical rhythm. Photic stimulation elicits a driving response at poor flash frequen cies. Hyperventilation was not performed due to patient is being intubated. There are no focal, sh amanda-wave, spike, or wave activity seen. Heart rate 60 beats per minute. IMPRESSION: ABNORMAL EEG DUE TO GENERALIZED SLOWING. CLINICAL CORRELATION: This record is supportive of mild to moderate encephalopathy, which could be secondary to postictal state, posthypoxic state, metabolic disorder, diffuse EXHIBIT DESIGNER insult, or increase d intracranial pressure. No epileptiform/seizure activity seen. Clinical correlation is suggested.
--- NOTE | 2016-12-31 17:21 | Neurology Progress Note ---
Neurology - PN : Subjective Interval history: Patient seems to be doing about the same. Her eyes are open but she is not following any commands. Tolerating CPAP trials well. EEG showed mild to moderate generalized slowing. Exam (Progress Note) - Constitutional Vitals: Period Temp Pulse Resp BP Sys/Rodriguez Pulse Ox Last 24 Hr 99.1 F-101.1 F 69-105 12-26 95-191/48-96 95-100 Exam: GENERAL: Patient is in no acute distress. NECK: Neck is supple. There is no JVD. No carotid bruits present. No thyroid masses. CVS: First and second heart sounds are normal. There is no S3 present. Regular rate and rhythm. RESPIRATORY: Lungs are clear to auscultation without any rales or rhonchi. ABDOMEN: Soft and non-tender. Bowel sounds are present. There is no hepatosplenomegaly. EXT: There is no palpable edema. Peripheral pulses are present. Skin: No rashes Central Nervous system: General: Unresponsive Speech: None Comprehension: None Facial expressions: Normal Cranial Nerves: Pupils are 3-4 mm nonreactive. Doll's head eye movements are negative. Corneals are absent. Motor: Bulk and Tone is normal. Strength: No spontaneous movement seen. Sensory: No movement seen on deep painful stimuli. Reflexes: Absent Cerebellar function: Cannot be assessed Toes: Equivocal Gait: Cannot be assessed Results - Labs CBC & BMP: 12/31/16 08:32 12/31/16 08:32 Assessment and Plan (1) Anoxic brain injury Status: Acute Assessment and plan: Continue supportive management. No new recommendations at this time. Discussed with the daughter in detail. Current Visit: Yes
[2016-12-31] MEDS: LACTULOSE 20 GM/30 ML UDCUP PO SCH ×2 (18:19→20:30)
[2016-12-31] MEDS: ROSUVASTATIN 10 MG TABLET PO SCH (20:30)
[2016-12-31] MEDS: POTASSIUM CHLORIDE RIDER 10 MEQ in PREMIX 1 EACH IV PRN ×2 (21:48→22:58)
[2017-01-01] MEDS: POTASSIUM CHLORIDE RIDER 10 MEQ in PREMIX 1 EACH IV PRN ×6 (00:01→09:02)
[2017-01-01] MEDS: NITROGLYCERIN 2% OINT 1 INCH/GM PACK TOP SCH ×3 (00:05→11:23)
[2017-01-01] MEDS: INSULIN LISPRO 100 UNIT/ML SUBCUT SCH ×3 (00:13→14:12)
[2017-01-01] MEDS: CLINDAMYCIN INJ 600 MG in PREMIX 1 EACH IV SCH ×2 (00:15→09:35)
[2017-01-01 05:02] LABS: Basophils % 0.1 % (0.0-0.8); Hemoglobin 10.5 GM/DL (12.0-16.0); Immature Granulocytes Absolute 0.11 #; Lymphocytes % 8.4 % (21.3-54.2); Mean Corpuscular Hemoglobin 32 PG (27-34); Mean Platelet Volume 10.2 FL (9.6-12.0); Monocytes # 0.5 10*3/uL (0.11-0.8); Monocytes % 4.4 % (1.7-12.7); Neutrophils # 9.7 10*3/uL (1.4-7.4); Neutrophils % 86.1 % (38.7-73.9); Platelet Count 181 T/CUMM (130-400); Red Blood Count 3.26 MC/CUMM (3.8-5.5); Red Cell Distribution Width 14.7 % (9.3-17.3); White Blood Count 11.3 T/CUMM (4-12)
[2017-01-01 05:29] LABS: Calcium 7.8 MG/DL (8.5-10.1); Magnesium 2.5 MG/DL (1.8-2.4); Osmolality,Calculated 291.4 MOS/KG (273-304); Potassium 3.4 MMOL/L (3.5-5.1)
[2017-01-01 05:32] LABS: Phosphorous 6.9 MG/DL (2.5-4.9)
--- NOTE | 2017-01-01 07:08 | XRay Report ---
Referring Physician: Jordan Mora MD Exam: XR chest 1V portable Date: January 01, 2017 at 3:27 AM Reason: Ventilation Comparison: Chest one view portable December 31, 2016 Findings: An endotracheal tube and feeding tube are again in place. The cardiac silhouette is again borderline prominent, and there is stable mild prominence of the l[place]. The interstitial markings are slightly prominent bilaterally, which could reflect minimal pulmonary edema. No pneumothorax is identified, but there may be minimal bilateral pleural fluid. The osseous structures appear stable. Impression: There is improved aeration of the right lower lung zone. However, there may be minimal pulmonary edema and minimal bilateral pleural fluid. PROCEDURE INTERPRETED AT [facility]PARTMENT OF RADIOLOGY Final Report Signed by: Dr. Bridget King
--- NOTE | 2017-01-01 08:15 | Cardiology Progress Note ---
Assessment and Plan - Time spent with patient Time spent with patient: Less than 30 minutes (1) Acute respiratory failure Status: Acute Assessment and plan: SEE PLAN OF CARE LISTED BELOW. Current Visit: Yes (2) Cardiac arrest with ventricular fibrillation Status: Acute Assessment and plan: SEE PLAN OF CARE LISTED BELOW. Current Visit: Yes (3) Atrial fibrillation Status: Chronic Assessment and plan: SEE PLAN OF CARE LISTED BELOW. Current Visit: Yes (4) ESRD (end stage renal disease) on dialysis Status: Chronic Assessment and plan: SEE PLAN OF CARE LISTED BELOW. Current Visit: No (5) Hypokalemia Status: Acute Assessment and plan: SEE PLAN OF CARE LISTED BELOW. Current Visit: No (6) Hypertension Status: Chronic Assessment and plan: SEE PLAN OF CARE LISTED BELOW. 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 Muniz is a 51 y/o WF who was transferred to us from [place] after a witnessed collapse while eating. She had a cardiac arrest with v. fib and was defibrillated in the field. She has a history of ESRD on periotoneal dialysis, atrial fibrillation, TIA, heart failure with preserved EF. Her echocardiogram this admission revealed an EF of 40-45%, global hypokinesis, mild mitral regurgitation, severe tricuspid regurgitation, PAP 65-70 mmHg, trace pulmonary regurgitation, mildly enlarged right atrium. EEG is pending. She has suspected hypoxic brain injury and has had poor neurological recovery thus far. She underwent a fiberoptic bronchocscopy with pulmonology and was cleared of thick secretions from the right lower lobe. Currently, she is hemodynamically stable and has had no dysrhythmias noted. She is tolerating CPAP trials and withdraws to painful stimuli but has no purposeful movements. Apparently, her son who works offshore and her daughter do not agree on management of Ms. Muniz's care. Her daughter seems to be in favor of withdrawal of support given the circumstances but her son is not in favor of that. [employer] has been consulted to try to get the children together to make a joint decision. ASSESSMENT/PLAN: 1. ACUTE RESPIRATORY FAILURE - Pulmonology following. She is status post bronchoscopy. Remains intubated and on mechanical ventilation. 2. CARDIAC ARREST WITH VFIB - Apparently Ms. Muniz was seen after collapsing while eating and was defibrillated in the field. She is now minimally responsive and on mechanical ventilation. Her potassium of 2.2 could have certainly contributed to her V.fib episode. She did have troponin leak, mild cardiomyopathy. She will need ischemic evaluation, if/when her condition improves. There was no STEMI. Hypokalemia was likely a major factor in her arrhythmia. copnt to monitor BMP/Mg and replete. 3. ATRIAL FIBRILLATION - With history of TIA. She has been started on aspirin, amiodarone infusion has been stopped and she was started on Metoprolol 25mg PO BID. No recurrence of PVT/VF since amiodarone was stopped. 4. ESRD - Creatinine up to 9.9 with GFR 4. Nephrology is following and plans to continue with her peritoneal dialysis support. 5. HYPOKALEMIA - Potassium 2.2 on admission. This is still being replaced. Potassium is up to 3.3 today. 6. HYPERTENSION - Will continue to monitor. We are adjusting her medications accordingly. Dr. Weber to follow with further plan and addendum. Exam (Progress Note) - Constitutional Vitals: Period Temp Pulse Resp BP Sys/Rodriguez Pulse Ox Last 24 Hr 99.2 F-100.5 F 63-90 12-25 113-150/63-95 97-100 Exam: General appearance: Orally intubated and on ventilator. Overweight, nonresponsive. - Head Head exam: Present: normal inspection, normocephalic, atraumatic. Absent: hematoma, laceration - Eye Eye exam: Absent: conjunctival injection, nystagmus, periorbital swelling, scleral icterus, laceration to eyelids Pupils: Present: sluggish. - ENT ENT exam: Present: Orally intubated, normal external ear exam - Neck Neck exam: Present: normal inspection. Absent: lymphadenopathy, meningismus, tenderness, thyromegaly - Respiratory Respiratory exam: Present: Mechanically ventilated breath sounds. Absent: accessory muscle use - Cardiovascular Cardiovascular exam: Present: Irregular rate and rhythm. Absent: carotid bruit , gallop, JVD, rubs, murmur - GI/Abdominal GI/Abdominal exam: Present: normal bowel sounds, soft. Absent: distended, firm , guarding, hernia, mass, tenderness, rebound. - Extremities Exam Extremities exam: Present: normal inspection, normal capillary refill. Upper extremity pulses 2+. Lower extremity pulses 2+. Absent: calf tenderness, edema - Back Exam Back exam: Present: Unable to examine due to habitus. On mechanical ventilator. - Neurological Exam Neurological exam: Present: Limited due to habitus (on ventilator). Withdraws from painful stimuli. Eyes will open spontaneously but do not appear to fixate. She has no purposeful movements. - Psychiatric Psychiatric exam: Present: Unable to adequately assess due to patient being on mechanical ventilation. - Skin Skin exam: Present: normal color, warm, dry, intact. Absent: cyanosis, diaphoretic, rash, urticaria Result/EKG - Labs CBC & BMP: 01/01/17 04:44 01/01/17 04:44 Lab Results: I have reviewed the past 24 hour labs Labs: Laboratory Results - last 24 hr 12/29/16 12/30/16 12/31/16 06:51 14:52 08:32 WBC 17.1 H D RBC 3.11 L Hgb 10.0 L Hct 28.6 L MCV 92.0 MCH 32 MCHC 35.0 RDW 15.0 Plt Count 209 MPV 10.1 Neut % (Auto) 83.3 H Lymph % (Auto) 10.7 L [place] % (Auto) 4.8 Eos % (Auto) 0.0 Baso % (Auto) 0.1 Neut # (Auto) 14.3 H Lymph # (Auto) 1.8 [place] # (Auto) 0.8 Eos # (Auto) 0.0 Baso # (Auto) 0.0 Immature Gran % 1.1 Nucleated RBC % 0.3 Immature Gran # 0.19 Nucleated RBCs # 0.05 Sodium Potassium Chloride Carbon Dioxide Anion Gap BUN Creatinine GFR Calculation BUN/Creatinine Ratio Glucose POC Glucose Calculated Osmolality Calcium Phosphorus Magnesium Prealbumin Procalcitonin 1.5 H Blood Type O POSITIVE Antibody Screen Negative Crossmatch See Detail 12/31/16 12/31/16 12/31/16 08:32 08:32 12:10 WBC RBC Hgb 10.2 L Hct 29.2 L MCV MCH MCHC RDW Plt Count MPV Neut % (Auto) Lymph % (Auto) [place] % (Auto) Eos % (Auto) Baso % (Auto) Neut # (Auto) Lymph # (Auto) [place] # (Auto) Eos # (Auto) Baso # (Auto) Immature Gran % Nucleated RBC % Immature Gran # Nucleated RBCs # Sodium 133 L Potassium 3.3 L Chloride 90 L Carbon Dioxide 26 Anion Gap 20.3 H BUN 49 H Creatinine 9.90 H GFR Calculation 4 BUN/Creatinine Ratio 4.00 L Glucose 117 H POC Glucose 188 H Calculated Osmolality 279.4 Calcium 7.9 L Phosphorus Magnesium 2.3 Prealbumin Procalcitonin Blood Type Antibody Screen Crossmatch 12/31/16 12/31/16 01/01/17 17:50 23:59 04:44 WBC RBC Hgb Hct MCV MCH MCHC RDW Plt Count MPV Neut % (Auto) Lymph % (Auto) [place] % (Auto) Eos % (Auto) Baso % (Auto) Neut # (Auto) Lymph # (Auto) [place] # (Auto) Eos # (Auto) Baso # (Auto) Immature Gran % Nucleated RBC % Immature Gran # Nucleated RBCs # Sodium Potassium Chloride Carbon Dioxide Anion Gap BUN Creatinine GFR Calculation BUN/Creatinine Ratio Glucose POC Glucose 167 H 272 H Calculated Osmolality Calcium Phosphorus 6.9 H Magnesium Prealbumin 17.0 L Procalcitonin Blood Type Antibody Screen Crossmatch 01/01/17 01/01/17 01/01/17 04:44 04:44 05:26 WBC 11.3 D RBC 3.26 L Hgb 10.5 L Hct 30.0 L MCV 92.0 MCH 32 MCHC 35.0 RDW 14.7 Plt Count 181 MPV 10.2 Neut % (Auto) 86.1 H Lymph % (Auto) 8.4 L [place] % (Auto) 4.4 Eos % (Auto) 0.0 Baso % (Auto) 0.1 Neut # (Auto) 9.7 H Lymph # (Auto) 1.0 L [place] # (Auto) 0.5 Eos # (Auto) 0.0 Baso # (Auto) 0.0 Immature Gran % 1.0 Nucleated RBC % 0.0 Immature Gran # 0.11 Nucleated RBCs # 0.00 Sodium 133 L Potassium 3.4 L Chloride 92 L Carbon Dioxide 26 Anion Gap 18.4 H BUN 55 H Creatinine 9.80 H GFR Calculation 5 BUN/Creatinine Ratio 5.00 L Glucose 296 H POC Glucose 300 H Calculated Osmolality 291.4 Calcium 7.8 L Phosphorus Magnesium 2.5 H Prealbumin Procalcitonin Blood Type Antibody Screen Crossmatch - EKG EKG results: interpreted by me EKG shows: atrial fibrillation
[2017-01-01 08:23] LABS: ABG Base Excess 1.4 MMOL/L (-2.5-2.5); ABG HCO3 25.6 MMOL/L (20-26); ABG PCO2 41.3 MM HG (35-48); ABG PH 7.409 (7.35-7.45); ABG TCO2 23.7 MMOL/L (23-27)
--- NOTE | 2017-01-01 08:23 | Pulmonology Progress Note ---
Pulmonary - PN: Subj Interval history: This 51-year-old white female may have choked on some food in a restaurant. She had cardiopulmonary arrest and is on the ventilator. She has a markedly decreased level of consciousness and probable hypoxic brain injury. Her chest x -ray had shown a right lower lobe infiltrate. We bronchoscoped her yesterday and cleaned out some thick secretions from the right lower lobe. There were no foreign bodies or food elements found. Today's x-ray is clear. Was checking on culture from the bronchial washings and do not see any reports as yet. She is on empiric antibiotics. 12/31/2016 neurologically patient is not showing any improvement. Her ABGs and chest x-ray look okay. Bronchial washings cultures were negative. Continue antibiotics and mechanical ventilatory support. EEG is pending. Neurology has seen her yesterday and is following. Prognosis does not look good from a neurologic standpoint. 01/01/2017 patient is making some motions but none are purposeful. She is not responsive. She has hypoxic brain injury. Continuing mechanical ventilatory support. She has a daughter that would be in favor of withdrawal of support given the circumstances. Apparently there is a son that is not in favor of that. The social workers are trying to get them together to make a joint decision Exam (Progress Note) - Constitutional Vitals: Period Temp Pulse Resp BP Sys/Rodriguez Pulse Ox Last 24 Hr 99.2 F-100.5 F 63-90 12-25 113-150/63-95 97-100 Exam: Patient is unresponsive. Vital signs normal. Pupils midpoint and very sluggish at best. Orotracheal tube in place. Neck is supple no bruits. Chest sounds clear. Heart normal rate rhythm no murmurs. Abdomen soft no masses. Extremities no clubbing cyanosis edema. Little change from yesterday. Results - Labs CBC & BMP: 01/01/17 04:44 01/01/17 04:44 Lab Results: I have reviewed the past 24 hour labs - Diagnostic Findings Procedure: Chest x-ray: image reviewed by me (Lung villareal essentially clear. ET tube in good position.) Assessment and Plan (1) Right lower lobe pneumonia Status: Acute Assessment and plan: Based on yesterday's chest x-ray and endoscopic findings. This was present on admission. We do not have reports back from the bronchial wash cultures as yet. Patient is on broad antibiotics for suspected aspiration pneumonia 12/31/2016 radiographically pneumonia has improved considerably. We did clean out retained secretions Friday. I have just had some atelectasis related to that. Cultures have been negative. Continuing empiric antibiotics suspicious for aspiration. 01/01/2017 this is cleared radiographically. I do think she had aspiration syndrome but not pneumonia. Current Visit: Yes (2) End-stage renal disease on peritoneal dialysis Status: Acute Assessment and plan: Defer to nephrology 12/31/2016 continuing peritoneal dialysis. Current Visit: Yes (3) Cardiac arrest with ventricular fibrillation Status: Acute Assessment and plan: Regular rhythm now. Apparent hypoxic brain injury. Being assessed neurologically 12/31/2016 blood pressure stable. Severe hypoxic brain injury apparently. Continuing to follow. 01/01/2017 hypoxic brain injury secondary to cardiac arrest. Decision needs to be made within the next few days whether to continue long-term mechanical ventilatory support with a tracheostomy, or withdrawal support due to her hypoxic brain injury. Current Visit: Yes (4) Acute hypoxemic respiratory failure Status: Acute Assessment and plan: ABGs look good. Continuing mechanical ventilation for now until neurologic status is clear. 12/31/2016 ABGs look good. Cannot wean until we can tell what her mental status is going to be. 01/01/2017 ABGs acceptable. Current Visit: Yes
[2017-01-01] MEDS ORDERED: POTASSIUM CHLORIDE 20 MEQ/15 ML UDCUP PER TUBE SCH ×2 (09:00→21:00)
[2017-01-01] MEDS ORDERED: INSULIN GLARGINE 100 UNIT/ML SUBCUT SCH (09:30)
[2017-01-01] MEDS: LACTULOSE 20 GM/30 ML UDCUP PO SCH (09:34)
[2017-01-01] MEDS: methylPREDNISolone SOD SUC 40 MG/1 ML VIAL IV SCH (09:38)
[2017-01-01] MEDS: METOPROLOL TARTRATE 25 MG TABLET PO SCH (09:46)
--- NOTE | 2017-01-01 12:06 | Hospitalist Progress Note ---
Assessment and Plan (1) Cardiac arrest with ventricular fibrillation Status: Acute Assessment and plan: cont metoprolol 25 mg po bid, Dr. Weber following Current Visit: Yes (2) Anoxic brain injury Status: Acute Assessment and plan: no seizures on EEG, Patient is less responsive today and family needs to withdraw care. Current Visit: Yes (3) Anemia Status: Acute Assessment and plan: patient has blood in stool, hgb stable Current Visit: No (4) Hypokalemia Status: Chronic Assessment and plan: Continue daily replacement Current Visit: No (5) Atrial fibrillation Status: Chronic Assessment and plan: hx of afib in past, no anticoagulation as has blood in stool Current Visit: Yes (6) End-stage renal disease on peritoneal dialysis Status: Chronic Assessment and plan: peritoneal dialysis by Dr. Peterosn Current Visit: No (7) Acute respiratory failure Status: Acute Assessment and plan: pulmonary edema, Dr. Peterson try to pull more fluid off today, breathing over vent , did well on cpap trials discussed case with Dr Mora Current Visit: Yes (8) Aspiration pneumonia Status: Acute Assessment and plan: improving on levaquin and clindamycin Current Visit: Yes Hospitalist: Subjective Interval history: The EEG showing generalized slowing and no evidence of seizure activity. She is now no longer responding to painful stimuli. Her pupils are fixed and dilated. She has evidence of blood in her stool and we are stopping all blood thinners. Patient less responsive and deteriorating. She still has too much fluid on her lungs but just because we extubate her does not mean that she will immediately stop breathing as she is still breathing about the vent. Called patient's daughter and told her that she needs to go get her brother and have him come and see him and talk to him. His mother does not want to be on event and would not want to live like this according to the daughter and we need to honor her wishes Exam - Constitutional Vitals: Period Temp Pulse Resp BP Sys/Rodriguez Pulse Ox Last 24 Hr 98.3 F-100.3 F 63-90 12-22 116-150/63-95 97-100 Exam: Heart Rate-[RRR] Lungs-[fine crackles] GI-[+bs soft, NT] Ext-[anasarca] Neuro pupils fixed and dilated and no response to painful stimuli. psych unable to assess due to neurological exam General [no acute distress] Results - Labs CBC & BMP: 01/01/17 04:44 01/01/17 04:44 Lab Results: I have reviewed the past 24 hour labs
--- NOTE | 2017-01-01 12:10 | Nephrology Progress Note ---
Nephrology - PN: Subj Interval history: Patient is nonresponsive on my exam today. Physical exam general the patient chronically ill-appearing, heart is regular rate and rhythm, lungs are clear to auscultation anteriorly, extremities reveal trace pretibial edema Assessment/plan 1. End-stage renal disease-we will continue peritoneal dialysis , I am going to change her to 4.25% dextrose solutions alternating with 2.5% dextrose solutions to decrease her pull a little bit, her chest x-ray is improved apparently from yesterday per the radiology interpretation and her blood pressure seems to be under good control. 2. Cardiac arrest-patient's responsiveness is decreasing she has had a significant hypoxic brain injury 3. Respiratory failure continue vent support Exam (PN)-Nephrology - Vital Signs Vital signs: Period Temp Pulse Resp BP Sys/Rodriguez Pulse Ox Last 24 Hr 98.3 F-100.3 F 63-90 12- 116-150/63-95 97-100 - Lab 01/01/17 04:44 01/01/17 04:44 Most recent lab results ABG pH 7.409 (7.35-7.45) 01/01/17 08:17 ABG pCO2 41.3 MM HG (35-48) 01/01/17 08:17 ABG pO2 138.0 MM HG (80-95) H 01/01/17 08:17 ABG HCO3 25.6 MMOL/L (20-26) 01/01/17 08:17 ABG O2 Saturation 99.0 % (95-100) 01/01/17 08:17 Calcium 7.8 MG/DL (8.5-10.1) L 01/01/17 04:44 Phosphorus 6.9 MG/DL (2.5-4.9) H 01/01/17 04:44 Magnesium 2.5 MG/DL (1.8-2.4) H 01/01/17 04:44
[2017-01-01] MEDS: MORPHINE 2 MG/1 ML SYRINGE IV PRN ×5 (13:00→17:00)
[2017-01-01] MEDS ORDERED: MAGNESIUM SULF RIDER 2 GM in PREMIX 1 EACH IV ONE (13:01)
[2017-01-01] MEDS ORDERED: MORPHINE 2 MG/1 ML SYRINGE ONE ×2 (13:02→13:23)
--- NOTE | 2017-01-01 16:50 | Neurology Progress Note ---
Neurology - PN : Subjective Interval history: Patient is extubated. Family has decided to withdraw all support and keep comfort measures only Exam (Progress Note) - Constitutional Vitals: Period Temp Pulse Resp BP Sys/Rodriguez Pulse Ox Last 24 Hr 98.3 F-100.1 F 63-90 12-32 116-162/63-95 96-100 Exam: GENERAL: Patient is in no acute distress. NECK: Neck is supple. There is no JVD. No carotid bruits present. No thyroid masses. CVS: First and second heart sounds are normal. There is no S3 present. Regular rate and rhythm. RESPIRATORY: Lungs are clear to auscultation without any rales or rhonchi. ABDOMEN: Soft and non-tender. Bowel sounds are present. There is no hepatosplenomegaly. EXT: There is no palpable edema. Peripheral pulses are present. Skin: No rashes Central Nervous system: General: Unresponsive Speech: None Comprehension: None Facial expressions: Normal Cranial Nerves: Pupils are 3-4 mm nonreactive. Doll's head eye movements are negative. Corneals are absent. Motor: Bulk and Tone is normal. Strength: No spontaneous movement seen. Sensory: No movement seen on deep painful stimuli. Reflexes: Absent Cerebellar function: Cannot be assessed Toes: Equivocal Gait: Cannot be assessed Results - Labs CBC & BMP: 01/01/17 04:44 01/01/17 04:44 Assessment and Plan (1) Anoxic brain injury Status: Acute Assessment and plan: No further intervention per family's request Sign off please call as needed Current Visit: Yes
[2017-01-01] MEDS ORDERED: fentaNYL 50 MCG/HR PATCH TRANSDERM SCH (19:00)
[2017-01-02] MEDS: MORPHINE 2 MG/1 ML SYRINGE IV PRN (08:08)
--- NOTE | 2017-01-02 12:21 | Pulmonology Progress Note ---
Pulmonary - PN: Subj Interval history: This 51-year-old white female may have choked on some food in a restaurant. She had cardiopulmonary arrest and is on the ventilator. She has a markedly decreased level of consciousness and probable hypoxic brain injury. Her chest x -ray had shown a right lower lobe infiltrate. We bronchoscoped her yesterday and cleaned out some thick secretions from the right lower lobe. There were no foreign bodies or food elements found. Today's x-ray is clear. Was checking on culture from the bronchial washings and do not see any reports as yet. She is on empiric antibiotics. 12/31/2016 neurologically patient is not showing any improvement. Her ABGs and chest x-ray look okay. Bronchial washings cultures were negative. Continue antibiotics and mechanical ventilatory support. EEG is pending. Neurology has seen her yesterday and is following. Prognosis does not look good from a neurologic standpoint. 01/01/2017 patient is making some motions but none are purposeful. She is not responsive. She has hypoxic brain injury. Continuing mechanical ventilatory support. She has a daughter that would be in favor of withdrawal of support given the circumstances. Apparently there is a son that is not in favor of that. The social workers are trying to get them together to make a joint decision. 01/02/2017 this 51-year-old lady has severe hypoxic brain injury. She had a terminal wean yesterday. She is still breathing although respiratory rate was slow when I saw her earlier this morning. At this point she is comfort measures only. I will sign off from pulmonary standpoint. Please call if needed further. Exam (Progress Note) - Constitutional Vitals: Period Temp Pulse Resp BP Sys/Rodriguez Pulse Ox Last 24 Hr 97.1 F-97.8 F 60-75 10-32 111-169/64-82 96-100 Exam: Patient is unresponsive. Vital signs normal. Respiratory rate of about 8 or 10. Pupils midpoint and very sluggish at best. Facemask oxygen nonrebreathing mask in place. Neck is supple no bruits. Chest sounds clear. Heart normal rate rhythm no murmurs. Abdomen soft no masses. Extremities no clubbing cyanosis edema. Results - Labs CBC & BMP: 01/01/17 04:44 01/01/17 04:44 Lab Results: I have reviewed the past 24 hour labs Assessment and Plan (1) Right lower lobe pneumonia Status: Acute Assessment and plan: Based on yesterday's chest x-ray and endoscopic findings. This was present on admission. We do not have reports back from the bronchial wash cultures as yet. Patient is on broad antibiotics for suspected aspiration pneumonia 12/31/2016 radiographically pneumonia has improved considerably. We did clean out retained secretions Friday. I have just had some atelectasis related to that. Cultures have been negative. Continuing empiric antibiotics suspicious for aspiration. 01/01/2017 this is cleared radiographically. I do think she had aspiration syndrome but not pneumonia. 01/02/2017 patient is now comfort measures only. Current Visit: Yes (2) End-stage renal disease on peritoneal dialysis Status: Acute Assessment and plan: Defer to nephrology 12/31/2016 continuing peritoneal dialysis. 01/02/2017 defer to nephrology. Current Visit: Yes (3) Cardiac arrest with ventricular fibrillation Status: Acute Assessment and plan: Regular rhythm now. Apparent hypoxic brain injury. Being assessed neurologically 12/31/2016 blood pressure stable. Severe hypoxic brain injury apparently. Continuing to follow. 01/01/2017 hypoxic brain injury secondary to cardiac arrest. Decision needs to be made within the next few days whether to continue long-term mechanical ventilatory support with a tracheostomy, or withdrawal support due to her hypoxic brain injury. 01/02/2017 severe hypoxic brain injury. Current Visit: Yes (4) Acute hypoxemic respiratory failure Status: Acute Assessment and plan: ABGs look good. Continuing mechanical ventilation for now until neurologic status is clear. 12/31/2016 ABGs look good. Cannot wean until we can tell what her mental status is going to be. 01/01/2017 ABGs acceptable. 01/02/2017 patient was extubated yesterday. Does not appear to be in distress. Plan for comfort measures only. Will sign off please call if needed further. Current Visit: Yes
--- NOTE | 2017-01-02 12:21 | Nephrology Progress Note ---
Nephrology - PN: Subj Interval history: Patient is nonresponsive, she has been weaned off the ventilator, she is on facemask oxygen now she continues to have breathing however she has a slow respiratory rate and has some upper airway noises. Assessment/plan 1. End-stage renal disease-patient is comfort measures only at this point 2. Cardiac arrest-patient has suffered a significant hypoxic brain injury, the family has decided to keep her comfortable and stop aggressive therapy. Exam (PN)-Nephrology - Vital Signs Vital signs: Period Temp Pulse Resp BP Sys/Rodriguez Pulse Ox Last 24 Hr 97.1 F-97.8 F 60-75 10-32 111-169/64-82 96-100 - Lab 01/01/17 04:44 01/01/17 04:44 Most recent lab results ABG pH 7.409 (7.35-7.45) 01/01/17 08:17 ABG pCO2 41.3 MM HG (35-48) 01/01/17 08:17 ABG pO2 138.0 MM HG (80-95) H 01/01/17 08:17 ABG HCO3 25.6 MMOL/L (20-26) 01/01/17 08:17 ABG O2 Saturation 99.0 % (95-100) 01/01/17 08:17 Calcium 7.8 MG/DL (8.5-10.1) L 01/01/17 04:44 Phosphorus 6.9 MG/DL (2.5-4.9) H 01/01/17 04:44 Magnesium 2.5 MG/DL (1.8-2.4) H 01/01/17 04:44
--- NOTE | 2017-01-02 14:40 | Hospitalist Progress Note ---
Assessment and Plan (1) Hospice care Status: Acute Assessment and plan: Fentanyl patch and morphine every 15 minutes as needed as needed for shortness of breath Current Visit: Yes (2) Cardiac arrest with ventricular fibrillation Status: Acute Assessment and plan: Hospice end-of-life care discontinue all medicine Current Visit: Yes (3) Anoxic brain injury Status: Acute Assessment and plan: Due to cardiac arrest Current Visit: Yes (4) End-stage renal disease on peritoneal dialysis Status: Chronic Assessment and plan: Discontinue all peritoneal dialysis Current Visit: No (5) Acute respiratory failure Status: Acute Assessment and plan: Due to volume overload Current Visit: Yes Hospitalist: Subjective Interval history: We will make a referral to hospice. Patient having severe respiratory difficulties this morning she already has a fentanyl patch and we will continue to be generous with the morphine. Family not in the room at this time. Exam - Constitutional Vitals: Period Temp Pulse Resp BP Sys/Rodriguez Pulse Ox Last 24 Hr 96.3 F-97.8 F 60-71 10-21 101-169/58-82 89-100 Exam: Heart Rate-[RRR] Lungs-bilateral coarse crackles GI-[+bs soft, NT] Ext-[anasarca] Neuro pupils fixed and dilated and no response to painful stimuli. psych unable to assess due to neurological exam General severe acute distress Results - Labs CBC & BMP: 01/01/17 04:44 01/01/17 04:44
[2017-01-03] MEDS ORDERED: TUBERCULIN SKIN TEST 0.1 ML SYRINGE INTRADERM ONE (11:18)
--- NOTE | 2017-01-03 11:27 | Case Mgmt Physician Query Form ---
TB Signs and Symptoms Screening ([place]) INSTRUCTIONS: To be completed annually on residents/staff with a significant Tuberculin Skin Test (TST) upon admission/hire or a prior significant TST. To be completed on all staff at hire. Please respond to each listed symptom with an (X) in either the "YES" or "NO" box. Do you currently have any of the following symptoms: YES NO ( ) (x ) A cough If yes, is it: ( ) Productive ( ) Non- productive ( ) (x ) Hemoptysis (spitting up blood) ( ) (x ) Chest pains ( ) (x ) Weight Loss ( ) ( x) Fever ( ) (x ) Night Sweats ( ) (x ) Weakness ( ) (x ) Loss of Appetite (x ) ( ) Difficulty Breathing If you answered YES" to any of the above questions, how long have symptoms been present? Comments: If you have any questions, please contact me. Thank you, Misti STEPHENSON P: [phone] F: [phone] E: [email or web address]
[2017-01-03] MEDS ORDERED: LORazepam 2 MG/1 ML VIAL ONE (11:32)
[2017-01-03] MEDS: MORPHINE 2 MG/1 ML SYRINGE IV PRN (11:42)
[2017-01-03] MEDS ORDERED: LORazepam 2 MG/1 ML VIAL IV ONE (11:43)
[2017-01-03] MEDS ORDERED: MORPHINE 2 MG/1 ML SYRINGE IV ONE (11:44)
[2017-01-03] MEDS ORDERED: LORazepam 2 MG/1 ML VIAL IV PRN (11:44)
--- NOTE | 2017-01-03 11:55 | Discharge Summary ---
Hospital Course - Hospital Course Hospital Course: 51-year-old female with end-stage renal disease on peritoneal dialysis presents to the emergency room following a cardiac arrest due to ventricular ventricular fibrillation. Patient arrested while in the car with her father. EMT arrived and she was defibrillated and intubated in the field. She was transferred to [facility] who transferred her by [facility]. Patient's pupils were sluggish initially she did respond to pain. No purposeful movement nor did she follow commands. Dr. Lopez was consulted. EEG showed severe slowing diffusely. No seizure activity was found. Patient worsened despite aggressive treatment and became completely unresponsive to painful stimuli. Patient suffered irreversible anoxic brain injury. Patient was continued on peritoneal dialysis by Dr. Peterson. Both her diabetes and atrial fibrillation controlled. Both her daughter and son consented to withdrawal of care on January 01, 2017 as the mother had already stated in her wishes that she would not want to live like this. Patient had a fentanyl patch 50 mcg placed and is been given morphine 2 mg IV every hour. She is in more respiratory distress today and developed seizures. I gave her 2 mg of Ativan IV and 4 mg of morphine IV. She is now stabilized and breathing comfortably. No family at bedside. We will evaluate her for inpatient versus outpatient hospice. She will receive Ativan 2 mg IV every 15 minutes as needed as needed for seizures and agitation and morphine 4 mg IV q. hour. I have increased her fentanyl patch from 50 mcg to 100 mcg. - Time spent with patient Time with patient DS: Greater than 30 minutes (60 min) Diagnosis - Discharge Diagnosis (1) Hospice care Status: Acute (2) Cardiac arrest with ventricular fibrillation Status: Acute (3) Anoxic brain injury Status: Acute (4) End-stage renal disease on peritoneal dialysis Status: Chronic (5) Acute respiratory failure Status: Acute Discharge Plan - Discharge Data Disposition: Hospice - Medical Facility Discharge Diet: other (npo ) - Discharge Medications New fentaNYL 100 MCG/HR PATCH [Duragesic 100 Patch] 1 patch TRANSDERM Q3DAY #5 patch Morphine Sulfate [Morphine Conc Liquid] 1 ml PO Q15M #30 ml LORazepam [Lorazepam Intensol] 1 ml PO Q15M #30 ml Discontinued Calcium Acetate [Phoslo] 2,001 mg PO TID W/MEALS Insulin Detemir [Levemir] 60 unit SUBCUT DAILY Escitalopram [Lexapro] 10 mg PO BEDTIME Calcium Acetate 1,334 mg PO BID Epoetin Beau [Epogen] 8,000 unit SUBCUT MoWeFr@0900 vial Gabapentin Cap/Tab [Neurontin Cap/Tab] 300 mg PO TID #0 Cinacalcet HCl [Sensipar] 60 mg PO DAILY W/LUNCH Metoclopramide HCl 5 mg PO ACHS Acetaminophen Tab [Tylenol Tab] 325 mg PO Q4H PRN #0 tablet PRN Reason: fever, headache/body aches Magnesium Hydroxide Susp [Milk of Magnesia] 30 ml PO Q6H PRN #0 udcup PRN Reason: Constipation Nicotine 21 mg/24 Hr Patch [Nicoderm CQ 21 mg/24 hr Patch] 1 patch TRANSDERM DAILY PRN #0 patch PRN Reason: Nicotine Withdrawal Pantoprazole Tab [Protonix Tab] 40 mg PO DAILY tablet Potassium Chloride Cap/Tab [K Dur] 20 meq PO DAILY tablet Insulin Lispro [HumaLOG] See Protocol SUBCUT ACHS Insulin Glargine [Lantus] 10 unit SUBCUT BEDTIME injection HYDROcodone/ACETAMIN 7.5-325 [[place] 7.5-325] 1 tablet PO Q4H PRN PRN Reason: Pain Moderate To Severe (4-10) traZODone [Desyrel] 100 mg PO BEDTIME PRN #0 tablet PRN Reason: Insomnia - Follow Up or Referral - Forms/Instructions Exam - Constitutional Vitals: Period Temp Pulse Resp BP Sys/Rodriguez Pulse Ox Last 24 Hr 96.3 F-98.7 F 37-66 8-25 86-110/37-73 89-98 General appearance: severe distress, over weight - Respiratory Respiratory exam: Present: rales - Cardiovascular Cardiovascular exam: Present: tachycardia DS: Provider Date of admission: 12/29/16 00:36 Primary care physician: . No PCP Attending physician on admission: Jm Walker MD Consults: 12/31/16 10:33 Consult to Case Mgmt/Social Srvs [CONS] Routine Reason for Case Mgmt/Social Srvs: LTAC 12/31/16 13:58 Consult to Dietitian [CONS] Routine Reason for Dietitian: TF-Initiate/Manage Discharging clinician: Vicenta Avalos MD
[2017-01-03 11:57] VITALS: BP 96/51
[2017-01-03] MEDS ORDERED: fentaNYL 100 MCG/HR PATCH TRANSDERM SCH (12:00)
[2017-01-03] MEDS ORDERED: MORPHINE PCA 30 MG/30 ML SYRINGE IV SCH (12:00)
== END 2017-01-03 16:45 | disposition hospice, inpatient (51) | DRG 208 ==
LOC: EDBD → EDUNIT# → N.ED 23:22 → SUATTDRO 12-29 00:36 → N.EDINP 12-29 00:36 → N.CC 12-29 00:47 → N.5E 01-01 23:44
PROVIDERS: ADMIT Student in an Organized Health Care Education/Training Program; ATTEND Internal Medicine